=== PATIENT | female | born 1970 | race Asian ===

== ENCOUNTER 2017-10-16 02:10 | Inpatient (IN) | payer BC ==
[~2017-10-16] VITALS: Ht 162.6 cm; Wt 74.8 kg
[2017-10-16] VITALS (7 sets, daily range): BP systolic 92–110; BP diastolic 41–70; PULSE 85–101; TEMP 36.3–38.2; O2SAT 95–99; Ht 162.6 cm; Wt 74.8 kg
[2017-10-16] MEDS ORDERED: SODIUM CHLORIDE 0.9% 1000ML 1,000 ML IV STA ×3 (02:37→05:21)
[2017-10-16] MEDS ORDERED: ACETAMINOPHEN 500 MG TAB PO STA (02:37)
--- NOTE | 2017-10-16 02:40 | EMERGENCY ROOM VISIT NOTE ---
History Report prepared by Mark: Nestor Estevez Under the Supervision of: Dr. Juana Steven D.O. First contact with patient: 02:24 Chief Complaint: FEVER Stated Complaint: FEVER,SWEATING,CAN'T BREATHE,SHAKING,FAST HB History of Present Illness The patient is a 47 year old female who presents to the Emergency Room with complaints of a constant fever beginning tonight. The patient states that her recently had a stroke, and she notes that she has been very tired because she has been taking care of him. She reports that she went to bed tonight because she thought she was developing a cold. The patient states that she became very cold after taking her medication. She notes that she also started shaking, and had left flank pain, a cough, an itchy throat, dizziness, and was diaphoretic and tachycardic. She reports that she becomes dizzy when she gets up. The patient states that she became diaphoretic after taking an Advil and covering herself with blankets. She notes that her daughter took her heart rate and told her that it was very fast, prompting her visit to the emergency department tonight. She denies any urinary symptoms, nausea, vomiting , diarrhea, leg swelling, and rash. She reports that she has never had similar symptoms and did not receive a flu shot this year. The patient states that she has a history of hypertension and diabetes and forgot to take her metformin tonight. Source of History: patient Onset: tonight Position: other (global) Quality: other (fever) Timing: constant Associated Symptoms: + chills, + diaphoresis, + cough, No nausea, No vomiting, No diarrhea, No urinary symptoms, No rash Note: The patient also complains of shaking, left flank pain, an itchy throat, dizziness, and tachycardia. She denies any leg swelling. Review of Systems See HPI for pertinent positives & negatives. A total of 10 systems reviewed and were otherwise negative. Past Medical & Surgical Medical Problems: (1) Diabetes (2) Hypertension Family History No pertinent family history stated. Social History Smoking Status: Never Smoker Marital Status: Housing Status: lives with family Occupation Status: unemployed Current/Historical Medications Scheduled Lisinopril (Zestril), 10 MG PO DAILY Metformin Hcl (Glucophage), 500 MG PO DAILY Allergies Coded Allergies: No Known Allergies (Unverified , 10/16/17) Physical Exam Vital Signs Date Time Temp Pulse Resp B/P (MAP) Pulse Ox O2 Delivery O2 Flow Rate FiO2 10/16/17 05:22 95 20 95/63 98 10/16/17 04:54 99 16 100/59 100 Room Air 10/16/17 03:31 38.3 101 16 86/65 97 Room Air 10/16/17 02:57 109 20 99/62 100 Room Air 10/16/17 02:53 Room Air 10/16/17 02:19 39.0 130 20 104/72 97 Room Air Physical Exam HEENT: Head - normocephalic and atraumatic Pupils are equal, round, and reactive to light. Extraocular eye muscles are intact, and sclera are anicteric. Nose - moist nasal mucosa without discharge. Mouth - moist buccal mucosa. Oropharynx is nonerythematous and there is no tonsillar exudate or edema noted. Neck: Supple; no JVD, nuchal rigidity, cervical lymphadenopathy. Heart: Regular rhythm and tachycardic. There is a normal S1 and S2 with no murmurs, clicks, or gallops appreciated. Lungs: Clear to auscultation bilaterally with no wheezes, rales, or rhonchi. Abdomen: Soft, completely nontender, nondistended, with good bowel sounds. There are no palpable pulsatile masses or hepatosplenomegaly. There is no guarding, rigidity, or rebound noted. Back: Mild left CVA tenderness. Extremities: No evidence of cyanosis, clubbing, or edema. There are easily palpable peripheral pulses. Scabbed over lesion on the top of the right foot. Skin: hot and dry with good turgor and no rashes, diaphoretic. Neuro: Muscle strength was 5/5 in all four extremities, no other focal findings. Medical Decision & Procedures ER Provider Diagnostic Interpretation: Radiology results as stated below per my review and interpretation: CHEST 1 VIEW PORTABLE X-RAY: No pulmonary infiltrates or evidence of pneumonia. Laboratory Results 10/16/17 02:50 Red Blood Count 4.07, Mean Corpuscular Volume 83.8, Mean Corpuscular Hemoglobin 27.8, Mean Corpuscular Hemoglobin Concent 33.1, Mean Platelet Volume 10.1, Neutrophils (%) (Auto) 94.6, Lymphocytes (%) (Auto) 2.1, Monocytes (%) (Auto) 2.6, Eosinophils (%) (Auto) 0.2, Basophils (%) (Auto) 0.1, Neutrophils # (Auto) 15.47, Lymphocytes # (Auto) 0.35, Monocytes # (Auto) 0.43, Eosinophils # (Auto) 0.04, Basophils # (Auto) 0.02 10/16/17 02:50 Test 10/16/17 02:35 10/16/17 02:50 10/16/17 02:52 10/16/17 03:50 Influenza Type A Antigen Neg for Influ A (NEG) Influenza Type B Antigen Neg for Influ B (NEG) White Blood Count 16.38 K/uL (4.8-10.8) Red Blood Count 4.07 M/uL (4.2-5.4) Hemoglobin 11.3 g/dL (12.0-16.0) Hematocrit 34.1 % (37-47) Mean Corpuscular Volume 83.8 fL (80-100) Mean Corpuscular Hemoglobin 27.8 pg (25-34) Mean Corpuscular Hemoglobin Concent 33.1 g/dl (32-36) Platelet Count 306 K/uL (130-400) Mean Platelet Volume 10.1 fL (7.4-10.4) Neutrophils (%) (Auto) 94.6 % Lymphocytes (%) (Auto) 2.1 % Monocytes (%) (Auto) 2.6 % Eosinophils (%) (Auto) 0.2 % Basophils (%) (Auto) 0.1 % Neutrophils # (Auto) 15.47 K/uL (1.4-6.5) Lymphocytes # (Auto) 0.35 K/uL (1.2-3.4) Monocytes # (Auto) 0.43 K/uL (0.11-0.59) Eosinophils # (Auto) 0.04 K/uL (0-0.5) Basophils # (Auto) 0.02 K/uL (0-0.2) RDW Standard Deviation 44.4 fL (36.4-46.3) RDW Coefficient of Variation 14.4 % (11.5-14.5) Immature Granulocyte % (Auto) 0.4 % Immature Granulocyte # (Auto) 0.07 K/uL (0.00-0.02) Prothrombin Time 10.7 SECONDS (9.0-12.0) Prothromb Time International Ratio 1.0 (0.9-1.1) Activated Partial Thromboplast Time 28.0 SECONDS (21.0-31.0) Partial Thromboplastin Ratio 1.1 Anion Gap 7.0 mmol/L (3-11) Est Creatinine Clear Calc Drug Dose 54.2 ml/min Estimated GFR () 60.2 Estimated GFR (Non- 51.9 BUN/Creatinine Ratio 10.7 (10-20) Calcium Level 8.9 mg/dl (8.5-10.1) Total Bilirubin 1.0 mg/dl (0.2-1) Aspartate Amino Transf (AST/SGOT) 185 U/L (15-37) Alanine Aminotransferase (ALT/SGPT) 130 U/L (12-78) Alkaline Phosphatase 172 U/L (45-117) Total Protein 8.0 gm/dl (6.4-8.2) Albumin 3.2 gm/dl (3.4-5.0) Globulin 4.8 gm/dl (2.5-4.0) Albumin/Globulin Ratio 0.7 (0.9-2) Bedside Lactic Acid Venous 1.19 mmol/L (0.90-1.70) Urine Color DK YELLOW Urine Appearance TURBID (CLEAR) Urine pH 5.0 (4.5-7.5) Urine Specific [place] 1.026 (1.000-1.030) Urine Protein 1+ (NEG) Urine Glucose (UA) NEG (NEG) Urine Ketones TRACE (NEG) Urine Occult Blood 1+ (NEG) Urine Nitrite NEG (NEG) Urine Bilirubin 1+ (NEG) Urine Urobilinogen NEG (NEG) Urine Leukocyte Esterase MODERATE (NEG) Urine WBC (Auto) >30 /hpf (0-5) Urine RBC (Auto) 0-4 /hpf (0-4) Urine Hyaline Casts (Auto) 1-5 /lpf (0-5) Urine Epithelial Cells (Auto) >30 /lpf (0-5) Urine Bacteria (Auto) 1+ (NEG) Urine Pathogenic Casts /lpf (0) Urine Yeast (Auto) PRESENT (NONE PRSENT) Laboratory results per my review. Medications Administered Medications (Trade) Dose Ordered Sig/Patricia Route Start Time Stop Time Status Last Admin Dose Admin Sodium Chloride 1,000 ml @ 999 mls/hr Q1H1M STAT IV 10/16/17 02:37 10/16/17 03:37 DC 10/16/17 02:56 999 MLS/HR Acetaminophen (Tylenol Tab) 1,000 mg NOW STAT PO 10/16/17 02:37 10/16/17 02:38 DC 10/16/17 02:40 1,000 MG Sodium Chloride 1,000 ml @ 999 mls/hr Q1H1M STAT IV 10/16/17 03:40 10/16/17 04:40 DC 10/16/17 03:54 999 MLS/HR Imipenem/ Cilastatin Sodium 500 mg/Dextrose 110 ml @ 100 mls/hr NOW STAT IV 10/16/17 03:41 10/16/17 04:46 DC 10/16/17 04:11 100 MLS/HR Daptomycin 500 mg/ Sodium Chloride 60 ml @ 100 mls/hr NOW STAT IV 10/16/17 03:41 10/16/17 04:16 DC 10/16/17 04:10 100 MLS/HR Sodium Chloride 1,000 ml @ 200 mls/hr Q5H STAT IV 10/16/17 05:21 10/16/17 10:20 10/16/17 06:19 200 MLS/HR Procedure Acetaminophen 1000mg PO, Sodium Chloride 1000 ml @ 999 mls/hr IV. Sodium Chloride 1000 ml @ 999 mls/hr IV. Daptomycin 500mg/Sodium Chloride 60ml @ 100mls/hr IV, Imipenem/Cilastatin Sodium 500 mg/Dextrose 110ml @ 100mls/hr IV ED Course 0228: The patient was evaluated in room A10. A complete history and physical examination were performed. Nursing notes and previous electronic medical records were reviewed. IV lock was established and labs were drawn as above. A septic protocol was performed. A urine specimen was obtained. The patient went for chest x-ray as described above. 0235: I reevaluated and updated the patient. She will receive fluids and Tylenol. 0237: Acetaminophen 1000mg PO, Sodium Chloride 1000 ml @ 999 mls/hr IV. 0334: I rechecked the patient. Her pressure is down to the 80s. I laid her flat. She is currently receiving fluids and has been unable to provide a urine specimen. 0340: Sodium Chloride 1000 ml @ 999 mls/hr IV. 0341: Daptomycin 500mg/Sodium Chloride 60ml @ 100mls/hr IV, Imipenem/Cilastatin Sodium 500 mg/Dextrose 110ml @ 100mls/hr IV 0410: The patient's blood pressure is now 100/59. She received a liter of fluid and was able to provide a urine specimen. 0449: Upon reevaluation, I discussed findings and results with the patient. She verbalized agreement of the treatment plan. I spoke with Dr. Resendiz of the [facility] Hospitalist Service. The patient will be evaluated for further management and care. Medical Decision The patient is a 47 year old female who presents to the Emergency Room with complaints of a constant fever beginning tonight. Differential diagnoses include : influenza, pyelonephritis, pneumonia, UTI, and sepsis. Lab Results Show: WBC 16.3. Hemoglobin 11.3. Platelet count 306. 94% neutrophils. Lactic acid 1.1. BUN 13. Creatinine 1.2. Glucose 178. Total bilirubin 1. AST 185. ALT 130. Alkaline phosphatase 172. Normal coags. Negative influenza. Urine shows: trace ketones, 1+ blood, moderate leukocyte esterase, greater than 30 WBC, and 1+ bacteria. This is a 47-year-old female patient presents to the emergency department with fever and shaking chills. The patient admits that she is been under significant stress because she is caring for her who was recently diagnosed with a stroke. She presents with a slight cough and high fever with shaking chills. She also complains of left flank pain. Urinalysis was positive and I believe she is suffering from acute pyelonephritis and sepsis. The patient is considered to have been in septic shock because of her low blood pressure. She was treated with IV crystalloid therapy and antibiotics. I discussed the case with the [facility] Hospitalist and they will evaluate for further management. Medication Reconcilliation Current Medication List: was personally reviewed by ut Blood Pressure Screening Patient's blood pressure: Low blood pressure Low blood pressure related to septic shock. Consults Time Called: [phone] Consulting Physician: Dr. Resendiz - Hospitalist, [facility] Returned Call: [phone] Discussed the patient's case. The patient will be evaluated for further management. Impression Primary Impression: Septic shock Additional Impression: Pyelonephritis Critical Care I have personally spent greater than 45 minutes of critical care time in the direct management of this patient. This includes bedside care, interpretation of diagnostic studies, and testing, discussion with consultants, patient, and family members, and other required patient management activities. This 45 minutes is in excess of all separately billable procedures. Scribe Attestation The scribe's documentation has been prepared under my direction and personally reviewed by me in its entirety. I confirm that the note above accurately reflects all work, treatment, procedures, and medical decision making performed by me. Departure Information Dispostion Being Evaluated By Hospitalist Referrals No Doctor, Assigned (PCP) Patient Instructions [facility] Problem Qualifiers
[2017-10-16 03:05] LABS: INFLUENZA B ANTIGEN Neg for Influ B (NEG)
[2017-10-16 03:10] LABS: BASO % 0.1 %; BASO ABS # 0.02 K/uL (0-0.2); EOS % 0.2 %; EOS ABS # 0.04 K/uL (0-0.5); HEMATOCRIT 34.1 % (37-47); HEMOGLOBIN 11.3 g/dL (12.0-16.0); IG# 0.07 K/uL (0.00-0.02); LYMPH % 2.1 %; LYMPH ABS # 0.35 K/uL (1.2-3.4); MEAN CELL VOLUME 83.8 fL (80-100); MEAN CORPUSCULAR HEMOGLOBIN 27.8 pg (25-34); MEAN CORPUSCULAR HGB CONC 33.1 g/dl (32-36); MEAN PLATELET VOLUME 10.1 fL (7.4-10.4); MONO % 2.6 %; MONO ABS # 0.43 K/uL (0.11-0.59); NEUT % 94.6 %; NEUT ABS # 15.47 K/uL (1.4-6.5); PLATELET COUNT 306 K/uL (130-400); RED CELL DISTRIBUTION WIDTH CV 14.4 % (11.5-14.5); RED CELL DISTRIBUTION WIDTH SD 44.4 fL (36.4-46.3); WHITE BLOOD COUNT 16.38 K/uL (4.8-10.8)
[2017-10-16 03:28] LABS: ALBUMIN 3.2 gm/dl (3.4-5.0); CALCIUM 8.9 mg/dl (8.5-10.1); CREATININE 1.25 mg/dl (0.60-1.20); POTASSIUM 3.8 mmol/L (3.5-5.1)
[2017-10-16] MEDS ORDERED: IMIPENEM/CILASTATIN IV 500 MG in DEXTROSE 5% 100ML 100 ML IV STA (03:41)
[2017-10-16] MEDS ORDERED: DAPTOmycin IV 500 MG in SODIUM CHLORIDE 0.9% 50ML 50 ML IV STA (03:41)
[2017-10-16] MEDS ORDERED: GLC/500 PO (05:13)
[2017-10-16] MEDS ORDERED: LISI-461 PO (05:14)
[2017-10-16] MEDS ORDERED: DEXTROSE 50% 50 ML SYR IV PRN (05:45)
[2017-10-16] MEDS ORDERED: VANCOMYCIN CONSULT ACTIVE PRN (05:45)
[2017-10-16] MEDS ORDERED: ENOXAPARIN 40 MG/0.4 ML SYR SC SCH (05:45)
[2017-10-16] MEDS ORDERED: ONDANSETRON 8MG OD TAB PO PRN (05:45)
[2017-10-16] MEDS ORDERED: ZOLPIDEM TARTRATE 5 MG TAB PO PRN (05:45)
[2017-10-16] MEDS ORDERED: PIPERACILL/TAZOBAC CONSULT ACTIVE PRN (05:45)
[2017-10-16] MEDS ORDERED: GLUCOSE 10 TABS/TUBE PO PRN (05:45)
[2017-10-16] MEDS ORDERED: GLUCOSE 40% GEL 15 GM TUBE PO PRN (05:45)
[2017-10-16] MEDS ORDERED: GLUCAGON FOR INJ 1 MG VIAL SQ PRN (05:45)
[2017-10-16] MEDS ORDERED: CARBOHYDRATES FOR HYPOGLYCEMIA PO PRN (05:45)
[2017-10-16] MEDS ORDERED: PIPERACILL/TAZOBAC IV 3.375 GM in DEXTROSE 5% 100ML 100 ML IV SCH (06:00)
--- NOTE | 2017-10-16 06:10 | History and Physical ---
History & Physical Date & Time of Service: October 16, 2017 at 05:50 Chief Complaint: Fever,Sweating,Can't Breathe,Shaking,Fast Hb Primary Care Physician: No Doctor, Assigned History of Present Illness The patient is a 47-year-old female who presents to the emergency department due to acute onset of an elevated temperature, fatigue, chills, sweats, dizziness, sore throat, left flank pain, cough and increased heart rate, several hours prior to arrival. She has been taking care of her , who was recently in the hospital with a stroke. She reports never having had these type of symptoms before, and she did not get a flu shot this year. Past Medical/Surgical History Medical Problems: (1) Diabetes (2) Hypertension Family History Noncontributory Social History Smoking Status: Never Smoker Smokeless Tobacco Use: No Alcohol Use: none Drug Use: none Marital Status: Housing status: lives with family Occupational Status: unemployed Immunizations History of Influenza Vaccine: No History of Tetanus Vaccine?: Unknown History of Pneumococcal: No History of Hepatitis B Vaccine: Unknown Allergies Coded Allergies: No Known Allergies (Unverified , 10/16/17) Home Medications Scheduled Lisinopril (Zestril), 10 MG PO DAILY Metformin Hcl (Glucophage), 500 MG PO DAILY Review of Systems The patient denies chest pain, lower extremity swelling, nausea, vomiting, diarrhea , constipation, pelvic pain, blood in urine or stool, dysuria, urinary frequency or urgency, memory loss, loss of consciousness, rash, abnormal bruising or bleeding, imbalance, focal or generalized weakness, numbness or tingling in arms or legs, generalized arthralgias or myalgias, or neck pain. The review of systems is otherwise negative other than for that already noted above, and at least 10 systems have been reviewed. Physical Exam Vital Signs Date Time Temp Pulse Resp B/P (MAP) Pulse Ox O2 Delivery O2 Flow Rate FiO2 10/16/17 05:22 95 20 95/63 98 10/16/17 04:54 99 16 100/59 100 Room Air 10/16/17 03:31 38.3 101 16 86/65 97 Room Air 10/16/17 02:57 109 20 99/62 100 Room Air 10/16/17 02:53 Room Air 10/16/17 02:19 39.0 130 20 104/72 97 Room Air The patient is awake, alert and oriented 3, feels warm to touch, normocephalic and atraumatic, lying in bed and in no acute distress. HEENT--PERRL, EOMI, mucous membranes and oropharynx dry. Neck--supple. No JVD. No bruits. Thyroid normal, trachea midline, no adenopathy. Heart--normal S1 and S2. No murmurs, rubs or gallops. Lungs--clear bilaterally, no respiratory distress, no accessory muscle use. Abdomen--normal bowel sounds and soft. Tender left side of abdomen and flank. Nondistended, no hernias or masses. Extremities--no cyanosis or clubbing. No edema. There are good distal pulses b/ l. Dermatologic--normal skin turgor, normal color, no abnormal lymph nodes, no rash. Neurologic--cranial nerves II through XII grossly intact. Rheumatologic--normal range of motion. Psychiatric--normal affect. Diagnostics Laboratory Results Results Past 24 Hours Test 10/16/17 02:35 10/16/17 02:50 10/16/17 02:52 10/16/17 03:50 Range/Units Influenza Type A Antigen Neg for Influ A NEG Influenza Type B Antigen Neg for Influ B NEG White Blood Count 16.38 4.8-10.8 K/uL Red Blood Count 4.07 4.2-5.4 M/uL Hemoglobin 11.3 12.0-16.0 g/dL Hematocrit 34.1 37-47 % Mean Corpuscular Volume 83.8 80-100 fL Mean Corpuscular Hemoglobin 27.8 25-34 pg Mean Corpuscular Hemoglobin Concent 33.1 32-36 g/dl Platelet Count 306 130-400 K/uL Mean Platelet Volume 10.1 7.4-10.4 fL Neutrophils (%) (Auto) 94.6 % Lymphocytes (%) (Auto) 2.1 % Monocytes (%) (Auto) 2.6 % Eosinophils (%) (Auto) 0.2 % Basophils (%) (Auto) 0.1 % Neutrophils # (Auto) 15.47 1.4-6.5 K/uL Lymphocytes # (Auto) 0.35 1.2-3.4 K/uL Monocytes # (Auto) 0.43 0.11-0.59 K/uL Eosinophils # (Auto) 0.04 0-0.5 K/uL Basophils # (Auto) 0.02 0-0.2 K/uL RDW Standard Deviation 44.4 36.4-46.3 fL RDW Coefficient of Variation 14.4 11.5-14.5 % Immature Granulocyte % (Auto) 0.4 % Immature Granulocyte # (Auto) 0.07 0.00-0.02 K/uL Prothrombin Time 10.7 9.0-12.0 SECONDS Prothromb Time International Ratio 1.0 0.9-1.1 Activated Partial Thromboplast Time 28.0 21.0-31.0 SECONDS Partial Thromboplastin Ratio 1.1 Sodium Level 132 136-145 mmol/L Potassium Level 3.8 3.5-5.1 mmol/L Chloride Level 101 98-107 mmol/L Carbon Dioxide Level 24 21-32 mmol/L Anion Gap 7.0 3-11 mmol/L Blood Urea Nitrogen 13 7-18 mg/dl Creatinine 1.25 0.60-1.20 mg/dl Est Creatinine Clear Calc Drug Dose 54.2 ml/min Estimated GFR () 60.2 Estimated GFR (Non- 51.9 BUN/Creatinine Ratio 10.7 10-20 Random Glucose 178 70-99 mg/dl Calcium Level 8.9 8.5-10.1 mg/dl Total Bilirubin 1.0 0.2-1 mg/dl Aspartate Amino Transf (AST/SGOT) 185 15-37 U/L Alanine Aminotransferase (ALT/SGPT) 130 12-78 U/L Alkaline Phosphatase 172 45-117 U/L Total Protein 8.0 6.4-8.2 gm/dl Albumin 3.2 3.4-5.0 gm/dl Globulin 4.8 2.5-4.0 gm/dl Albumin/Globulin Ratio 0.7 0.9-2 Bedside Lactic Acid Venous 1.19 0.90-1.70 mmol/L Urine Color DK YELLOW Urine Appearance TURBID CLEAR Urine pH 5.0 4.5-7.5 Urine Specific [place] 1.026 1.000-1.030 Urine Protein 1+ NEG Urine Glucose (UA) NEG NEG Urine Ketones TRACE NEG Urine Occult Blood 1+ NEG Urine Nitrite NEG NEG Urine Bilirubin 1+ NEG Urine Urobilinogen NEG NEG Urine Leukocyte Esterase MODERATE NEG Urine WBC (Auto) >30 0-5 /hpf Urine RBC (Auto) 0-4 0-4 /hpf Urine Hyaline Casts (Auto) 1-5 0-5 /lpf Urine Epithelial Cells (Auto) >30 0-5 /lpf Urine Bacteria (Auto) 1+ NEG Urine Pathogenic Casts 0 /lpf Urine Yeast (Auto) PRESENT NONE PRSENT Microbiology Results 10/16/17 Blood Culture, Received Pending 10/16/17 Blood Culture, Received Pending 10/16/17 Urine Culture, Received Pending CXR normal Impression Assessment and Plan Septic shock //abnormal LFTs/ presumptive left pyelonephritis-- Admit to the telemetry unit for close blood pressure monitoring. She has received 2 L normal saline in the ED. Place on NSS + KCl 20 mEq at 150 mils per hour. She has received daptomycin IV and Primaxin IV in the emergency department. Place on vancomycin IV and Zosyn IV due to recent hospital association with her . Follow urine cultures and blood cultures and sensitivities. Order CT scan of abdomen and pelvis without contrast. Abnormal LFTs-- CT as above. Order acute hepatitis profile. Further management based on above CT. Acute kidney injury/hypertension-- Creatinine 1.25 upon admission. Hold lisinopril. IV fluids as above. Serial laboratories. Diabetes mellitus-- Hold metformin. Place on Accu-Cheks before meals and at bedtime with NovoLog coverage per scale. Check hemoglobin A1c. Advanced Directives Existing Advance Directive: No Existing Living Will: No Existing Power of Respooler: No Resuscitation Status VTE Prophylaxis Will order VTE Prophylaxis: Yes Social Service Consult None Apply
--- NOTE | 2017-10-16 06:56 | DIAGNOSTIC IMAGING REPORT ---
ABD/PELVIS NO IV OR ORAL CONT CT DOSE: 351.97 mGy.cm HISTORY: Flank pain sepsis, abnormal LFT's, UTI, flank tenderness TECHNIQUE: Multiaxial CT images of the abdomen and pelvis were performed without contrast. A dose lowering technique was utilized adhering to the principles of ALARA. COMPARISON STUDY: None. FINDINGS: Lung bases are clear. Liver spleen and pancreas appear unremarkable. Right kidney is negative for calcification or hydronephrosis. Left kidney shows multiple calcifications within the left renal pelvis and collecting system combined with a larger calcification at the left ureteropelvic junction. Large calcification at the UVJ measures 2.4 cm in greatest axis dimension. There is again moderate left renal hydronephrosis. Ureters appear unremarkable in overall course and caliber. The uterus bladder is midline. Appendix is normal. Bowel pattern is nonobstructive. Is anteflexed IMPRESSION: 1. Multiple calcifications within the left renal collecting system including the largest partially obstructing and or obstructing calculus at the left ureteral pelvic junction measuring 2.4 cm in maximum dimension. 2. Moderate left hydronephrosis. 3. Remainder of the study is unremarkable. The above report was generated using voice recognition software. It may contain grammatical, syntax or spelling errors. Electronically signed by: Tera Lucas M.D. 10/16/2017 6:54 AM Dictated Date/Time: 10/16/2017 6:51 AM
[2017-10-16] MEDS: INSULIN ASPART 100 UNITS/ML 3 ML PEN SC SCH ×4 (07:00→21:00)
--- NOTE | 2017-10-16 07:10 | DIAGNOSTIC IMAGING REPORT ---
SINGLE VIEW CHEST CLINICAL HISTORY: Sepsis. FINDINGS: An AP, portable, upright chest radiograph is obtained. No prior studies are available for comparison at the time of dictation. The examination is degraded by portable technique and patient rotation. The cardiomediastinal silhouette is unremarkable. The lungs and pleural spaces are clear. No pneumothorax is seen. The bony thorax is grossly intact. IMPRESSION: No active disease in the chest. Electronically signed by: Bridger Bauer M.D. 10/16/2017 7:09 AM Dictated Date/Time: 10/16/2017 7:09 AM
[2017-10-16] MEDS: NSS + 20MEQ KCL 1000ML 1,000 ML IV SCH ×3 (09:49→20:04)
[2017-10-16] MEDS ORDERED: PIPERACILL/TAZOBAC IV 3.375 GM in NSS 100 ML IV ONE (10:00)
[2017-10-16] MEDS ORDERED: FENTANYL CITRATE INJ 50 MCG/1 ML 2 ML VIAL ONE (10:25)
[2017-10-16] MEDS ORDERED: MIDAZOLAM HCL 1 MG/ML 2ML VIAL ONE (10:25)
[2017-10-16] MEDS ORDERED: PROPOFOL IV EMULSION 10 MG/ML 20 ML VIAL ONE (10:25)
[2017-10-16] MEDS ORDERED: LIDOCAINE HCL 2% 2 ML VIAL (20MG/ML) ONE (10:25)
--- NOTE | 2017-10-16 10:26 | Urology Consultation ---
History General Date of Service: October 16, 2017. Primary Care Physician: No Doctor, Assigned History of Present Illness 47-year-old female admitted with an obstructing 22 mm left ureteropelvic junction stone with fever. She was in her usual state of health until she developed some left flank pain yesterday this was associated with some fever and chills. She came to the ER CT scan was done showing multiple stones in the left kidney and a 22 mm stone obstructing the left ureteropelvic junction. Her blood and urine cultures are pending she is not having significant pain now but with the fever the potential for her to become septic exists. She has not had stones before Laboratory Labs were reviewed and are within normal limits unless listed below. Labs are available in the chart and at [facility] Problem List Medical Problems: (1) Pyelonephritis Status: Acute (2) Septic shock Status: Acute Social History Hx Tobacco Use In Past Year?: No Marital status: Housing status: lives with family Occupation status: unemployed Immunizations History of Influenza Vaccine: No History of Tetanus Vaccine?: Unknown History of Pneumococcal: No History of Hepatitis B Vaccine: Unknown Allergies Coded Allergies: No Known Allergies (Unverified , 10/16/17) Medications Home Medications: Home Meds and Scripts Medications Dose Route/Sig Max Daily Dose Days Date Category Zestril (Lisinopril) 10 Mg Tab 10 Mg PO DAILY 10/16/17 Reported Glucophage (Metformin Hcl) 500 Mg Tab 500 Mg PO DAILY 10/16/17 Reported Inpatient Medications: Current Inpatient Medications Medications (Trade) Dose Ordered Sig/Patricia Route Start Time Stop Time Status Last Admin Dose Admin Potassium Chloride/Sodium Chloride 1,000 ml @ 150 mls/hr Q6H40M IV 10/16/17 06:44 11/15/17 06:43 10/16/17 09:49 150 MLS/HR Zolpidem Tartrate (Ambien Tab) 5 mg HSZ PRN PO 10/16/17 05:45 11/15/17 05:44 Ondansetron HCl (Zofran Odt) 8 mg Q6H PRN PO 10/16/17 05:45 11/15/17 05:44 Insulin Aspart (novoLOG ASPART) SLIDING SCALE If C... ACHS SC 10/16/17 07:00 11/15/17 06:59 Glucose (Glucose 40% Gel) 15-30 GRAMS 15 GRAMS... UD PRN PO 10/16/17 05:45 11/15/17 05:44 Glucose (Glucose Chew Tab) 4-8 Tablets 4 Tabl... UD PRN PO 10/16/17 05:45 11/15/17 05:44 Dextrose (Dextrose 50% 50ML Syringe) 25-50ML OF 50% DW IV FOR... UD PRN IV 10/16/17 05:45 11/15/17 05:44 Glucagon (Glucagon Inj) 1 mg UD PRN SQ 10/16/17 05:45 11/15/17 05:44 Carbohydrates (Carbohydrates For Hypoglycemia) 15-30 GRAMS 15 grams if BSG 54-69... UD PRN PO 10/16/17 05:45 11/15/17 05:44 Vancomycin HCl 1000 mg/Sodium Chloride 270 ml @ 125 mls/hr Q14H IV 10/17/17 02:00 10/18/17 10:29 Miscellaneous Information (Consult) 1 ea UD PRN N/A 10/16/17 05:45 11/15/17 05:44 Miscellaneous Information (Consult) 1 ea UD PRN N/A 10/16/17 05:45 11/15/17 05:44 Vancomycin HCl 1750 mg/Sodium Chloride 535 ml @ 200 mls/hr ONE ONCE IV 10/16/17 10:30 10/16/17 13:10 Piperacillin Sod/ Tazobactam Sod 3.375 gm/Sodium Chloride 115 ml @ 230 mls/hr NOW ONCE IV 10/16/17 10:00 10/16/17 10:29 Piperacillin Sod/ Tazobactam Sod 3.375 gm/Sodium Chloride 115 ml @ 28.75 mls/ hr Q8H IV 10/16/17 16:00 10/18/17 15:59 Review of Systems Review of Systems Additional Comments: View of systems reviewed from her admitting history and physical Physical Exam Vital Signs: Vital Signs Past 12 Hours Date Time Temp Pulse Resp B/P (MAP) Pulse Ox O2 Delivery O2 Flow Rate FiO2 10/16/17 08:00 Room Air 10/16/17 07:23 37.3 85 18 92/59 99 Room Air 10/16/17 06:27 37.2 87 19 87/53 99 10/16/17 05:22 95 20 95/63 98 10/16/17 04:54 99 16 100/59 100 Room Air 10/16/17 03:31 38.3 101 16 86/65 97 Room Air 10/16/17 02:57 109 20 99/62 100 Room Air 10/16/17 02:53 Room Air 10/16/17 02:19 39.0 130 20 104/72 97 Room Air Physical Exam: General Appearance: WD/WN, no apparent distress ENT: hearing grossly normal Neck: supple, no adenopathy Respiratory/Chest: lungs clear, normal breath sounds, no respiratory distress Cardiovascular: regular rate, rhythm Gastrointestinal: Abdomen: normal abdomen Assessment & Plan Assessment & Plan Assessment Obstructing left ureteropelvic junction stone with fever We will take the patient to the operating room for cystoscopy left stent. We also discussed percutaneous nephrostomy tube for which she might have to be transferred out of this facility Discussed the stenting procedure including the risks of bleeding infection and anesthetic risks injury to the urinary tract and failure to get the skin in which would require nephrostomy tube placement all of her questions were answered and she agrees to proceed
[2017-10-16] MEDS ORDERED: EpHEDrine SULFATE INJ 50 MG/ML AMP IV PRN (10:30)
[2017-10-16] MEDS ORDERED: FENTANYL CITRATE INJ 50 MCG/1 ML 2 ML VIAL IV PRN (10:30)
[2017-10-16] MEDS ORDERED: ONDANSETRON INJ 2 MG/ML 2 ML VIAL IV PRN (10:30)
[2017-10-16] MEDS ORDERED: ATROPINE SULFATE 0.1 MG/ML 5ML SYR IV PRN (10:30)
[2017-10-16] MEDS ORDERED: VANCOMYCIN IV 1,750 MG in SODIUM CHLORIDE 0.9% 500ML 500 ML IV ONE (10:30)
[2017-10-16 10:53] LABS: HEP C IGG 13 YRS+OLDER_RFLX NEG (NEG)
[2017-10-16] MEDS ORDERED: Cysto-Conray II 17.2% 250ML BOTTLE ONE (11:00)
--- NOTE | 2017-10-16 12:13 | [facility] Post Operative Brief Note ---
Immediate Operative Summary Operative Date October 16, 2017. Pre-Operative Diagnosis Obstructing left ureteropelvic junction stone with fever Post-Operative Diagnosis Obstructing left ureteropelvic junction stone with fever Procedure(s) Performed Cystoscopy, Retrograde, Left Ureteral Stent Insertion. Surgeon Nike Athlete Surgeon(s) none Estimated Blood Loss 0ml Findings Consistent with Post-Op Diagnosis Specimens none per surgeon Drains 6x26f left ureteral stent Anesthesia Type MAC Complication(s) none Disposition Accompanied Pt To Recover: yes Disposition: Recovery Room / PACU
--- NOTE | 2017-10-16 12:18 | DIAGNOSTIC IMAGING REPORT ---
RETROGRADE INCLUDES KUB CLINICAL HISTORY: LEFT STENT PLACEMENT COMPARISON STUDY: CT of the abdomen and pelvis October 16, 2017. Fluoroscopy time: 66 seconds. FINDINGS: 5 fluoroscopic images were submitted for interpretation during a left retrograde exam. These images demonstrate cannulation of the left ureter with redemonstration of left hydronephrosis and multiple filling defects within the left collecting system shown to be calculi on prior CT. The findings images demonstrate appropriate positioning of a left ureteral stent. IMPRESSION: Fluoroscopic images from left retrograde exam with ureteral stent insertion, as described above. Electronically signed by: Edy Javed M.D. 10/16/2017 12:17 PM Dictated Date/Time: 10/16/2017 12:15 PM
--- NOTE | 2017-10-16 12:22 | [facility] Operative Report ---
Operative Report Operative Date October 16, 2017. Pre-Operative Diagnosis Obstructing left ureteropelvic junction stone with fever Post-Operative Diagnosis Obstructing left ureteropelvic junction stone with fever Procedure(s) Performed Cystoscopy, Retrograde, Left Ureteral Stent Insertion. Surgeon Ramp Lead Surgeon(s) none Estimated Blood Loss 0ml Findings Cystoscopic exam showed a normal urethra. Bladder showed no mucosal abnormalities. There was a purulent discharge from the left ureteral orifice. There were large stones in the left kidney and a lot of pus drained from the kidney once the stent was placed Specimens none per surgeon Drains 6x26f left ureteral stent Anesthesia Type MAC Complication(s) none Disposition yes Recovery Room / PACU Indications 47-year-old woman admitted with urosepsis and obstructed left kidney being brought in for left stent placement Description of Procedure After the induction of an adequate level of intravenous sedation and appropriate timeout patient was placed in the dorsolithotomy position. Lower abdomen and genitalia were prepped with Hibiclens draped in a sterile fashion. Using a 22 [place] Islander scope routine cystoscopic exam was performed with the above- noted findings. Next a 0.038 guidewire was passed through the left ureteral orifice and a 5 [place] Islander open-ended catheter was passed over this. A lot of purulent drainage drained from the left kidney left retrograde pyelogram was performed which showed left hydroureteronephrosis. Then under fluoroscopic guidance the guidewire was advanced past this large stone into the renal pelvis. The open-ended catheter was removed and a 6 [place] Islander by 26 cm stent was passed over the guidewire under fluoroscopic guidance to position above the large obstructing stone in the renal pelvis confirmed by fluoroscopy. Guidewire was removed there was a good curl at the bladder level. Patient's bladder was then drained. Cystoscope and sheath were removed. All needle sponge instrument counts were correct at the end of the case. Patient tolerated the procedure well and was taken recovery room in stable condition. I attest to the content of the Intraoperative Record and any orders documented therein. Any exceptions are noted below.
[2017-10-16] MEDS ORDERED: PHENYLEPHRINE 100MCG/ML 5ML SYR ONE (12:25)
--- NOTE | 2017-10-16 13:09 | Anesthesiology Progress Note ---
Anesthesia Post Op Note Date & Time October 16, 2017 at 13:09 Vital Signs Pain Intensity: 0 Vital Signs Past 12 Hours Date Time Temp Pulse Resp B/P (MAP) Pulse Ox O2 Delivery O2 Flow Rate FiO2 10/16/17 13:05 36.9 99 16 87/62 97 Room Air 10/16/17 12:55 99 16 81/59 97 Room Air 10/16/17 12:45 96 16 89/62 97 Room Air 10/16/17 12:35 97 16 80/55 98 Room Air 10/16/17 12:25 99 16 83/59 100 Room Air 10/16/17 12:15 97 16 80/56 100 Room Air 10/16/17 12:09 36.4 103 16 76/49 96 Room Air 10/16/17 08:00 Room Air 10/16/17 07:23 37.3 85 18 92/59 99 Room Air 10/16/17 06:27 37.2 87 19 87/53 99 10/16/17 05:22 95 20 95/63 98 10/16/17 04:54 99 16 100/59 100 Room Air 10/16/17 03:31 38.3 101 16 86/65 97 Room Air 10/16/17 02:57 109 20 99/62 100 Room Air 10/16/17 02:53 Room Air 10/16/17 02:19 39.0 130 20 104/72 97 Room Air Notes Mental Status: alert / awake / arousable, participated in evaluation Pt Amnestic to Procedure: Yes Nausea / Vomiting: adequately controlled Pain: adequately controlled Airway Patency, RR, SpO2: stable & adequate BP & HR: stable & adequate Hydration State: stable & adequate Anesthetic Complications: no major complications apparent
[2017-10-16 13:55] LABS: BASO % 0.1 %; BASO ABS # 0.01 K/uL (0-0.2); HEMATOCRIT 30.1 % (37-47); IG# 0.05 K/uL (0.00-0.02); LYMPH % 2.3 %; LYMPH ABS # 0.32 K/uL (1.2-3.4); MEAN CELL VOLUME 83.8 fL (80-100); MEAN CORPUSCULAR HEMOGLOBIN 27.9 pg (25-34); MEAN CORPUSCULAR HGB CONC 33.2 g/dl (32-36); MEAN PLATELET VOLUME 10.6 fL (7.4-10.4); MONO % 2.3 %; MONO ABS # 0.32 K/uL (0.11-0.59); NEUT % 94.9 %; NEUT ABS # 13.15 K/uL (1.4-6.5); PLATELET COUNT 234 K/uL (130-400); RED CELL DISTRIBUTION WIDTH CV 14.6 % (11.5-14.5); RED CELL DISTRIBUTION WIDTH SD 45.2 fL (36.4-46.3); WHITE BLOOD COUNT 13.85 K/uL (4.8-10.8)
[2017-10-16 14:25] LABS: CALCIUM 7.7 mg/dl (8.5-10.1); POTASSIUM 3.6 mmol/L (3.5-5.1)
--- NOTE | 2017-10-16 14:56 | Pharmacy Progress Note ---
Pharmacy Abx Initial Consult Date of Service October 16, 2017. Pharmacy Dosing Scope Date of Consult: 10/16/17 Consultation requested by: Dr. Resendiz Pharmacy is consulted to initiate Vancomycin and Zosyn IV dosing therapy, order appropriate labs and adjust drug dose/frequency. Subjective The patient is a 47 year old female admitted on October 16, 2017 at 06:02 admitted for left flank pain with fever and chills Objective Height (Feet): 5 Height (Inches): 4.00 Weight (Kilograms): 69.900 (BMI 26.4) Vital Signs (Past 12Hrs) Vital Signs Past 12 Hours Date Time Temp Pulse Resp B/P (MAP) Pulse Ox O2 Delivery O2 Flow Rate FiO2 10/16/17 14:00 36.8 98 18 101/65 (77) 98 10/16/17 13:39 Room Air 10/16/17 13:30 36.8 101 18 93/58 (70) 98 10/16/17 13:05 36.9 99 16 87/62 97 Room Air 10/16/17 12:55 99 16 81/59 97 Room Air 10/16/17 12:45 96 16 89/62 97 Room Air 10/16/17 12:35 97 16 80/55 98 Room Air 10/16/17 12:25 99 16 83/59 100 Room Air 10/16/17 12:15 97 16 80/56 100 Room Air 10/16/17 12:09 36.4 103 16 76/49 96 Room Air 10/16/17 08:00 Room Air 10/16/17 07:23 37.3 85 18 92/59 99 Room Air 10/16/17 06:27 37.2 87 19 87/53 99 10/16/17 05:22 95 20 95/63 98 10/16/17 04:54 99 16 100/59 100 Room Air 10/16/17 03:31 38.3 101 16 86/65 97 Room Air 10/16/17 02:57 109 20 99/62 100 Room Air 10/16/17 02:53 Room Air Lab Results (24Hrs) Laboratory Tests (24 Hours) Test 10/16/17 13:43 Lactic Acid Level 1.5 mmol/L (0.4-2.0) White Blood Count 13.85 K/uL (4.8-10.8) H Red Blood Count 3.59 M/uL (4.2-5.4) L Hemoglobin 10.0 g/dL (12.0-16.0) L Hematocrit 30.1 % (37-47) L Mean Corpuscular Volume 83.8 fL (80-100) Mean Corpuscular Hemoglobin 27.9 pg (25-34) Mean Corpuscular Hemoglobin Concent 33.2 g/dl (32-36) Platelet Count 234 K/uL (130-400) Mean Platelet Volume 10.6 fL (7.4-10.4) H Neutrophils (%) (Auto) 94.9 % Lymphocytes (%) (Auto) 2.3 % Monocytes (%) (Auto) 2.3 % Eosinophils (%) (Auto) 0.0 % Basophils (%) (Auto) 0.1 % Neutrophils # (Auto) 13.15 K/uL (1.4-6.5) H Lymphocytes # (Auto) 0.32 K/uL (1.2-3.4) L Monocytes # (Auto) 0.32 K/uL (0.11-0.59) Eosinophils # (Auto) 0.00 K/uL (0-0.5) Basophils # (Auto) 0.01 K/uL (0-0.2) Micro Results Date/Time Source Procedure Growth Status 10/16/17 03:01 Blood Blood Culture Pending Received 10/16/17 02:50 Blood Blood Culture Pending Received 10/16/17 02:30 Urine , Clean Catch Urine Culture Pending Received Assessment & Plan Assessment 47 year old female admitted for L flank pain with fever and chills. CT shows multiple stones in left kidney with 22mm stone @ ureteropelvic junction. Plan Vancomycin IV * Est. PK parameters: Vd 0.7L/kg; Javy~ 0.049 hr-1, T1/2~14 hr, CrCl 54 * Loading dose: 1750 mg (25 mg/kg) * Maintenance dose: 1000 mg IV (~15 mg/kg) every 14 hours * Goal trough level for indication : 15 to 20 mcg/mL * Due to initial empiric indication, no trough levels were ordered. If Vancomycin to continue please follow and order trough to assess current regimen Piperacillin/tazobactam * 3.375 g bolus administered over 30 minutes, then 3.375 g IV extended infusion every 8 hours for CrCl greater than 20 mL/min OR every 12 hours for CrCl 20 mL/ min or less and dialysis. Pharmacy will continue to follow and will adjust dose/frequency as necessary. Thank you.
[2017-10-16] MEDS: PIPERACILL/TAZOBAC IV 3.375 GM in NSS 100ML IV SCH (16:36)
--- NOTE | 2017-10-16 21:52 | Progress Note ---
Progress Note Date of Service October 16, 2017. Progress Note Attending follow up note: patient admitted early this morning. Patient was seen this AM prior to cystoscopy, she was experiencing some tachycardia and low blood pressures, no no symptoms. She was resting comfortably, minimal left flank pain despite having a 2cm ureteral stone reported that she had 3 weeks of mild left flank and left back pain, no fever/ chills, no dysuria She had cystoscopy with left ureteral stent placed by Dr. Gutierrez today, no complications per report, there was a lot of purulent drainage from left ureter after stent placed repeated labs in the afternoon, WBC coming down to 13k, Cr normal at 1.0, lactic acid normal at 1.5 revisited again, she was feeling well, BP better, in 90-100's systolic, she was tolerating diet, still with minimal pain - Severe sepsis due to left ureteral stone, UTI, possible pyelonephritis no growth on urine or blood cultures yet continue Vancomycin and Zosyn until cultures returne no signs of shock, lactic acid normal, mentating clearly, adequate UO and BP responds to fluid s/p left ureteral stent, will need definitive treatment for stone eventually will need 14 days of antibiotics determined by cultures - Acute kidney injury: due to sepsis and dehydration resolved, Cr down to 1.0, making adequate urine hold Lisinopril - Hypotension: due to sepsis, responded well to fluids, hold Lisinopril - DM type II: hold Metformin, treat with Novolog - Mild elevated in LFT: likely due to hypotension and sepsis repeat tomorrow keep on tele, repeat labs in the AM, follow up on cultures
[2017-10-17] VITALS (7 sets, daily range): BP systolic 98–148; BP diastolic 63–86; PULSE 76–90; TEMP 36.8–37.6; O2SAT 99–100
[2017-10-17] MEDS ORDERED: ACETAMINOPHEN 325 MG TAB PO PRN
[2017-10-17] MEDS: PIPERACILL/TAZOBAC IV 3.375 GM in NSS 100ML IV SCH ×4 (00:34→23:27)
[2017-10-17] MEDS: NSS + 20MEQ KCL 1000ML 1,000 ML IV SCH ×4 (00:40→23:28)
[2017-10-17] MEDS ORDERED: VANCOMYCIN IV 1,000 MG in SODIUM CHLORIDE 0.9% 250ML 250 ML IV SCH (02:00)
[2017-10-17 06:23] LABS: HEPATITIS A IGM TC 51813E NON-REACTIVE (NON-REACTIVE); HEPATITIS B CORE IGM TC51854R NON-REACTIVE (NON-REACTIVE)
[2017-10-17 07:19] LABS: BASO % 0.4 %; BASO ABS # 0.03 K/uL (0-0.2); EOS % 1.1 %; EOS ABS # 0.08 K/uL (0-0.5); HEMATOCRIT 27.8 % (37-47); IG# 0.01 K/uL (0.00-0.02); LYMPH % 13.3 %; LYMPH ABS # 0.99 K/uL (1.2-3.4); MEAN CELL VOLUME 84.2 fL (80-100); MEAN CORPUSCULAR HEMOGLOBIN 27.3 pg (25-34); MEAN CORPUSCULAR HGB CONC 32.4 g/dl (32-36); MONO ABS # 0.52 K/uL (0.11-0.59); NEUT % 78.1 %; NEUT ABS # 5.83 K/uL (1.4-6.5); PLATELET COUNT 216 K/uL (130-400); RED CELL DISTRIBUTION WIDTH CV 14.8 % (11.5-14.5); WHITE BLOOD COUNT 7.46 K/uL (4.8-10.8)
[2017-10-17 07:53] LABS: ALBUMIN 2.1 gm/dl (3.4-5.0); CALCIUM 7.5 mg/dl (8.5-10.1); CREATININE 0.72 mg/dl (0.60-1.20); POTASSIUM 3.6 mmol/L (3.5-5.1)
[2017-10-17 08:01] LABS: TOTAL PROTEIN 5.8 gm/dl (6.4-8.2)
[2017-10-17] MEDS: INSULIN ASPART 100 UNITS/ML 3 ML PEN SC SCH ×4 (08:27→21:00)
--- NOTE | 2017-10-17 10:11 | Progress Note ---
Progress Note Date of Service October 17, 2017. Progress Note Postop day 1 from left ureteral stent placement Patient is afebrile vital signs are stable She is not having any pain or discomfort from the stent. She is voiding fine She does have a postobstructive diuresis Blood cultures positive for gram-negative bacilli White count down to normal creatinine normal Assessment #1 urosepsis with large obstructing left renal pelvic calculi Patient improving post stent placement Recommend continue antibiotic coverage broad-spectrum until sensitivities from the blood cultures are back Could then transition to oral antibiotics No further urologic intervention needed at this time
[2017-10-17] MEDS ORDERED: ENOXAPARIN 40 MG/0.4 ML SYR SQ ONE (10:24)
--- NOTE | 2017-10-17 11:02 | PROGRESS NOTE ---
DATE: 10/16/2017 HISTORY OF PRESENT ILLNESS: Mrs. Walker is a 47-year-old female with a history of type 2 diabetes mellitus, hypertension, and nephrolithiasis who presented acutely to [facility] ER on 10/16/2017 complaining of fevers, sweating, shortness of breath, shaking, and an elevated heart rate. She was found to have an obstructing left ureteral stone, and a pyelonephritis. Subsequently, her blood cultures grew out gram negative bacillus x2 (most likely E. coli). She was evaluated by Dr. Gutierrez in the ER and subsequently underwent placement of a left ureteral stent. With placement of the stent, she had maia purulent drainage consistent with her diagnosis. At the present time, she is feeling significantly better. Her white blood cell count has come down, and she had her last fever in the vessel scrapper helper hours today. She has been afebrile since 350 this morning. The patient offers no complaints. She denies any nausea, vomiting, headache, abdominal pain, back pain, flank pain, or shaking chills. MEDICATIONS: 1. Zosyn 3.375 g IV q. 8 hours. 2. Tylenol 650 mg p.o. q. 4 hours p.r.n. 3. NovoLog sliding scale insulin. 4. Normal saline with potassium chloride at 150 mL per hour. 5. Ambien 5 mg at bedtime p.r.n. for sleep. 6. Zofran ODT 8 mg q. 6 hours p.r.n. for nausea. ALLERGIES: NKDA. PHYSICAL EXAMINATION: VITAL SIGNS: Temperature 36.9 degrees Celsius, pulse 76 and regular, respiratory rate is 18 and unlabored, blood pressure is 98/63, SPO2 is 100% on room air. GENERAL: The patient is in no acute distress. HEENT: Head is atraumatic, normocephalic. EOMs intact. Sclerae are anicteric. Face is symmetric. No perioral cyanosis. Mucous membranes moist. NECK: Without thyromegaly, adenopathy or JVD. CHEST AND LUNGS: Clear to auscultation throughout all lung dia, no wheezes or rales. CARDIOVASCULAR: S1 and S2 are regular without obvious murmur, gallop or rub. ABDOMINAL EXAM: Bowel sounds present. Abdomen is soft. Mild tenderness to palpation in the left side of the abdomen. EXTREMITIES: No clubbing, cyanosis or edema. Palpable distal pulses in all extremities. Appears well perfused. NEUROLOGIC: The patient is awake, alert, and oriented. Pleasant and cooperative. Answers questions appropriately. Speech is clear. Normal movement bilateral upper and lower extremities. Gait pattern not assessed. DERMATOLOGIC EXAMINATION: Reveals no rashes, lesions, or ecchymosis. LABORATORIES: White blood cell count 7.46. Hemoglobin 9.0 g/dL, hematocrit 27.8%, platelet count is 216,000. Sodium is 140 mmol/L, potassium 3.6 mmol/L. BUN is 8 mg per deciliter, creatinine 0.72 mg/dL. Random glucose 116 mg/dL. Magnesium level normal at 1.8. Alkaline phosphatase 141. Total protein slightly low at 5.8 units per liter with an albumin level of 2.1. Urine culture showed more than 3 different types of organisms. Blood culture grew out gram negative bacilli x2. Identification of species and sensitivities is pending. This most likely represents E. coli. ASSESSMENT: 1. Nephrolithiasis with an obstructed left ureter, status post ureteral stent. 2. Pyelonephritis, complicated by sepsis. 3. Leukocytosis secondary to problem #2 - improved. 4. Type 2 diabetes mellitus. 5. Hypertension. 6. Diagnoses as mentioned above. PLAN: 1. Would recommend the patient remain in the telemetry unit for the time being as her blood pressure has been labile. She will continue receiving generous amounts of IV fluids until her blood pressure stabilizes. At that point, she may be transferred to the medical floor. 2. We will recommend continuing IV antibiotics for the time being. Repeat blood cultures. Once those are negative, we will recommend sending home on outpatient antibiotics. Begin Floranex. 3. Management of kidney stones as per Dr. Gutierrez. She will meet with him as an outpatient to discuss medication management strategy. 4. She was encouraged to remain well hydrated. 5. We will continue to closely follow. Attending Attestation - Pt seen/examined, chart reviewed, care plan d/w LOKESH Melo. I agree w/ the sanderson components of his documentation except - would d/c the IV vancomycin. Pt w/o complaints. asks when she might be discharged - her had a stroke recently and she is the primary caregiver for him. I discussed with her that it appears she has chronic hepatitis B infection - she stated she had never been diagnosed and that her LFTs in the office a month ago were normal. has been in the [place] for 20 years; originally from [place]. denies any abd pain. VSS tele stable gen - NAD neck - no JVD heart - RRR, s1, s2, no murmur lungs - CTA b/l abd - soft, no mass or HSM ext - no edema A/P: 1. gram negative septicemia 2nd to UTI in the setting of obstructing kidney stone - d/c vanco, cont zosyn, and repeat her blood cx's for test of cure; will need 14 days of Rx 2. suspected chronic HepB infection - send HepB surface Ab; [facility] GI referral after d/c for management; consider HepA vaccine 3. kidney stone s/p stent - management per urology 4. acute kidney injury 2nd to #1 - resolved 5. anemia - likely from blood draws, copious fluid, etc; repeat cbc in am Sal Oliva MD [facility]
[2017-10-17] MEDS ORDERED: LACTOBACILLUS ACIDOPHILUS (FLORANEX) TAB PO ONE (13:21)
[2017-10-17] MEDS: LACTOBACILLUS ACIDOPHILUS (FLORANEX) TAB PO SCH (17:09)
[2017-10-18 03:38] VITALS: BP 136/84; PULSE 94; TEMP 37.2; O2SAT 95
[2017-10-18] MEDS: NSS + 20MEQ KCL 1000ML 1,000 ML IV SCH ×2 (05:45→11:52)
[2017-10-18 06:08] LABS: BASO % 0.2 %; BASO ABS # 0.02 K/uL (0-0.2); EOS ABS # 0.28 K/uL (0-0.5); HEMATOCRIT 25.7 % (37-47); HEMOGLOBIN 8.5 g/dL (12.0-16.0); IG# 0.03 K/uL (0.00-0.02); LYMPH % 19.1 %; LYMPH ABS # 1.77 K/uL (1.2-3.4); MEAN CELL VOLUME 83.4 fL (80-100); MEAN CORPUSCULAR HEMOGLOBIN 27.6 pg (25-34); MEAN CORPUSCULAR HGB CONC 33.1 g/dl (32-36); MEAN PLATELET VOLUME 9.8 fL (7.4-10.4); MONO % 7.5 %; NEUT % 69.9 %; NEUT ABS # 6.49 K/uL (1.4-6.5); PLATELET COUNT 249 K/uL (130-400); RED CELL DISTRIBUTION WIDTH CV 14.9 % (11.5-14.5); WHITE BLOOD COUNT 9.29 K/uL (4.8-10.8)
[2017-10-18 06:40] LABS: ALBUMIN 2.2 gm/dl (3.4-5.0); CALCIUM 7.8 mg/dl (8.5-10.1); CREATININE 0.77 mg/dl (0.60-1.20); POTASSIUM 3.7 mmol/L (3.5-5.1)
[2017-10-18 07:08] VITALS: BP 135/87; PULSE 90; TEMP 36.8; O2SAT 98
[2017-10-18] MEDS: PIPERACILL/TAZOBAC IV 3.375 GM in NSS 100ML IV SCH (08:15)
[2017-10-18] MEDS: LACTOBACILLUS ACIDOPHILUS (FLORANEX) TAB PO SCH ×3 (08:16→17:31)
[2017-10-18] MEDS: ENOXAPARIN 40 MG/0.4 ML SYR SQ SCH (08:18)
[2017-10-18] MEDS: INSULIN ASPART 100 UNITS/ML 3 ML PEN SC SCH ×4 (08:23→20:38)
[2017-10-18 11:57] VITALS: BP 131/84; PULSE 80; TEMP 36.9; O2SAT 98
[2017-10-18 15:23] VITALS: BP 143/90; PULSE 72; TEMP 37; O2SAT 98
--- NOTE | 2017-10-18 15:29 | Progress Note ---
Subjective Date of Service: October 18, 2017. Subjective Pt evaluation today including: conversation w/ patient, physical exam, chart review, lab review, review of studies, conversation w/ healthcare network pricing consultant, review of inpatient medication list Generally doing okay, denies fever and chill, has been tolerating diet, Problem List Medical Problems: (1) Pyelonephritis Status: Acute (2) Septic shock Status: Acute Review of Systems Constitutional: + weakness, + fatigue, No fever, No chills, No sweats, No weight loss, No problem reported Eyes: No worsening of vision, No eye pain, No redness, No discharge, No diplopia ENT: No hearing loss, No unusual epistaxis, No nasal symptoms, No sore throat, No tinnitus, No dental problems, No trouble swallowing Respiratory: No cough, No sputum, No wheezing, No shortness of breath, No dyspnea on exertion, No dyspnea at rest, No hemoptysis Cardiac: No chest pain, No orthopnea, No PND, No edema, No claudication, No palpitations Abdomen: No pain, No nausea, No vomiting, No diarrhea, No constipation Musculoskeletal: No joint pain, No muscle pain, No swelling, No calf pain Female : No dysuria, No urinary frequency, No hematuria, No incontinence, No abnormal vaginal bleeding, No vaginal discharge Neurologic: No memory loss, No paralysis, No weakness, No numbness/tingling, No vertigo, No balance problems Psychiatric: No depression symptoms, No anhedonism, No anxiety, No insomnia, No substance abuse Heme: No abnormal bleeding/bruising, No clotting problems, No swollen lymph nodes, No night sweats Endo: No fatigue, No excessive thirst, No excessive urination Skin: No rash, No itch, No new/changing skin lesions, No color change, No bleeding Objective Vital Signs Date Time Temp Pulse Resp B/P (MAP) Pulse Ox O2 Delivery O2 Flow Rate FiO2 10/18/17 12:00 Room Air 10/18/17 11:57 36.9 80 18 131/84 (100) 98 Room Air 10/18/17 08:00 Room Air 10/18/17 07:08 36.8 90 18 135/87 (103) 98 Room Air 10/18/17 04:00 Room Air 10/18/17 03:38 37.2 94 18 136/84 (101) 95 Room Air 10/17/17 23:59 Room Air 10/17/17 23:38 37.1 88 18 148/86 (106) 99 Room Air 10/17/17 20:00 Room Air 10/17/17 19:25 36.9 90 19 124/80 (95) 99 Room Air 10/17/17 16:00 Room Air 10/17/17 15:26 36.8 87 19 104/69 (81) 99 Room Air Physical Exam General Appearance: WD/WN, no apparent distress Eyes: normal inspection, PERRL, EOMI, sclerae normal ENT: normal ENT inspection, hearing grossly normal, pharynx normal Neck: supple, no adenopathy, thyroid normal, no JVD, no carotid bruits, trachea midline Respiratory/Chest: chest non-tender, normal breath sounds, no respiratory distress, no accessory muscle use, + decreased breath sounds Cardiovascular: regular rate, rhythm, no edema, no gallop, no JVD, no murmur Abdomen: normal bowel sounds, non tender, soft, no organomegaly, no pulsatile mass Extremities: normal range of motion, non-tender, normal inspection, no pedal edema, no calf tenderness, normal capillary refill, pelvis stable Neurologic/Psychiatric: vp delivery II-XII nml as tested, no motor/sensory deficits, alert, normal mood/affect, oriented x 3 Skin: normal color, warm/dry, no rash Lymphatic: no adenopathy Laboratory Results Last 24 Hours Test 10/17/17 16:34 10/17/17 19:13 10/17/17 20:56 10/18/17 06:01 Bedside Glucose 127 mg/dl 115 mg/dl Hepatitis B Surface Antibody NEG White Blood Count 9.29 K/uL Red Blood Count 3.08 M/uL Hemoglobin 8.5 g/dL Hematocrit 25.7 % Mean Corpuscular Volume 83.4 fL Mean Corpuscular Hemoglobin 27.6 pg Mean Corpuscular Hemoglobin Concent 33.1 g/dl Platelet Count 249 K/uL Mean Platelet Volume 9.8 fL Neutrophils (%) (Auto) 69.9 % Lymphocytes (%) (Auto) 19.1 % Monocytes (%) (Auto) 7.5 % Eosinophils (%) (Auto) 3.0 % Basophils (%) (Auto) 0.2 % Neutrophils # (Auto) 6.49 K/uL Lymphocytes # (Auto) 1.77 K/uL Monocytes # (Auto) 0.70 K/uL Eosinophils # (Auto) 0.28 K/uL Basophils # (Auto) 0.02 K/uL RDW Standard Deviation 46.0 fL RDW Coefficient of Variation 14.9 % Immature Granulocyte % (Auto) 0.3 % Immature Granulocyte # (Auto) 0.03 K/uL Red Blood Cell Morphology Unremarkable Sodium Level 139 mmol/L Potassium Level 3.7 mmol/L Chloride Level 111 mmol/L Carbon Dioxide Level 22 mmol/L Anion Gap 6.0 mmol/L Blood Urea Nitrogen 8 mg/dl Creatinine 0.77 mg/dl Est Creatinine Clear Calc Drug Dose 91.4 ml/min Estimated GFR () 108.1 Estimated GFR (Non- 93.2 BUN/Creatinine Ratio 11.0 Random Glucose 106 mg/dl Calcium Level 7.8 mg/dl Magnesium Level 1.9 mg/dl Total Bilirubin 0.6 mg/dl Direct Bilirubin 0.2 mg/dl Aspartate Amino Transf (AST/SGOT) 22 U/L Alanine Aminotransferase (ALT/SGPT) 50 U/L Alkaline Phosphatase 162 U/L Total Protein 6.0 gm/dl Albumin 2.2 gm/dl Test 10/18/17 07:24 10/18/17 11:14 Bedside Glucose 98 mg/dl 115 mg/dl Assessment and Plan 47-year-old white female admitted on October 16, 2017 because of sepsis ureter obstruction and he needs to Nephrolithiasis with an obstructed left ureter, status post ureteral stent on October 16, 2017 E. coli bacteremia and sepsis and pyelonephritiss/UTI Leukocytosis secondary to problem sepsis and pyelonephritis Type 2 diabetes mellitus. Hypertension. 2 out of 2 blood culture positive for E. coli, sensitive to Cipro and Rocephin, has switched to Cipro, planning to get Cipro to home for total to 14 days of antibiotic treatment, repeat blood culture has been sent, will be safe to go home 48 hours if negative in the repeated blood culture Continue probiotic management of kidney stones and ureteral stent as per Dr. Gutierrez. Need to have outpatient to discuss medication management strategy, if need to refer her to [facility] Hypertension, was hypotensive because of sepsis upon admission, blood pressure is normalized, will gradually restart home blood pressure medicine GI DVT prophylaxis is covered Continued [facility] stay due to: multiple IV medications needed Discharge planning: home
[2017-10-18] MEDS ORDERED: NURSING VERBAL MED ORDER ONE (17:45)
[2017-10-18] MEDS: CIPROFLOXACIN 500 MG TAB PO SCH (18:08)
[2017-10-18 20:00] VITALS: O2SAT 98
[2017-10-18 23:29] VITALS: BP 147/91; PULSE 73; TEMP 36.7; O2SAT 100
[2017-10-19 07:04] LABS: BASO % 0.7 %; BASO ABS # 0.04 K/uL (0-0.2); EOS % 3.6 %; EOS ABS # 0.21 K/uL (0-0.5); HEMATOCRIT 30.5 % (37-47); HEMOGLOBIN 9.9 g/dL (12.0-16.0); IG# 0.02 K/uL (0.00-0.02); LYMPH % 32.6 %; LYMPH ABS # 1.89 K/uL (1.2-3.4); MEAN CORPUSCULAR HEMOGLOBIN 27.3 pg (25-34); MEAN CORPUSCULAR HGB CONC 32.5 g/dl (32-36); MEAN PLATELET VOLUME 10.3 fL (7.4-10.4); MONO % 7.8 %; MONO ABS # 0.45 K/uL (0.11-0.59); NEUT ABS # 3.19 K/uL (1.4-6.5); PLATELET COUNT 334 K/uL (130-400); RED CELL DISTRIBUTION WIDTH CV 15.1 % (11.5-14.5); RED CELL DISTRIBUTION WIDTH SD 46.6 fL (36.4-46.3)
[2017-10-19 07:28] VITALS: BP 145/87; PULSE 81; TEMP 36.7; O2SAT 99
[2017-10-19 07:34] LABS: ALBUMIN 2.5 gm/dl (3.4-5.0); CALCIUM 8.4 mg/dl (8.5-10.1); CREATININE 0.78 mg/dl (0.60-1.20); POTASSIUM 3.6 mmol/L (3.5-5.1)
[2017-10-19 07:37] LABS: TOTAL PROTEIN 6.7 gm/dl (6.4-8.2)
--- NOTE | 2017-10-19 07:59 | Anesthesiology Progress Note ---
Anesthesia Post Op Note Date & Time October 19, 2017 at 07:58 Vital Signs Pain Intensity: 0.0 Vital Signs Past 12 Hours Date Time Temp Pulse Resp B/P (MAP) Pulse Ox O2 Delivery O2 Flow Rate FiO2 10/19/17 07:28 36.7 81 20 145/87 (106) 99 Room Air 10/19/17 00:00 Room Air 10/18/17 23:29 36.7 73 14 147/91 (109) 100 Room Air 10/18/17 20:00 98 Room Air Notes Mental Status: alert / awake / arousable, participated in evaluation Pt Amnestic to Procedure: Yes Nausea / Vomiting: adequately controlled Pain: adequately controlled Airway Patency, RR, SpO2: stable & adequate BP & HR: stable & adequate Hydration State: stable & adequate Anesthetic Complications: no major complications apparent
[2017-10-19] MEDS ORDERED: LISINOPRIL 5 MG TAB PO SCH (08:00)
[2017-10-19 08:09] LABS: HEMOGLOBIN A1C 6.6 % (4.5-5.6)
[2017-10-19] MEDS: INSULIN ASPART 100 UNITS/ML 3 ML PEN SC SCH (08:19)
[2017-10-19] MEDS: ENOXAPARIN 40 MG/0.4 ML SYR SQ SCH (08:20)
[2017-10-19] MEDS: LACTOBACILLUS ACIDOPHILUS (FLORANEX) TAB PO SCH (08:20)
[2017-10-19] MEDS: CIPROFLOXACIN 500 MG TAB PO SCH (08:39)
--- NOTE | 2017-10-19 08:54 | Progress Note ---
Progress Note Date of Service October 19, 2017. Progress Note Patient's afebrile vital signs are stable She is feeling much better Says she is voiding without problem Is tolerating stent okay Assessment urosepsis obstructing left renal pelvic stone Recommend 2 weeks of antibiotic the organism is sensitive to My office will call her to schedule follow-up
[2017-10-19] MEDS ORDERED: LCTX PO (09:10)
[2017-10-19] MEDS ORDERED: CPR500 PO (09:10)
--- NOTE | 2017-10-19 09:18 | Discharge Instructions ---
Discharge Instructions Date of Service October 19, 2017. Admission Reason for Admission: Pyelonephritis, Septic Shock Discharge Discharge Diagnosis / Problem: Sepsis /bacteremia from ureter obstruction s/p stent Discharge Goals Goal(s): Decrease discomfort, Improve function, Increase independence, Improve disease control, Improve nutritional status, Learn about illness, Diagnostic testing, Therapeutic intervention, Prevent Disease Progression, Specific goals Activity Recommendations Activity Limitations: resume your previous activity . Instructions / Follow-Up Instructions / Follow-Up you had kidney stone with an obstructed left ureter, status post ureteral stent on October 16, 2017 you have E. coli bacteremia and sepsis and pyelonephritics/UTI I am giving you Cipro to home for total to 14 days of antibiotic treatment, Repeat blood culture has been sent, so far is negative, you need to follow up with pcp for the final result I am giving you probiotic you need to folllow up with Dr. Gutierrez in 2 week, his office will call you for the appointment, you should call if no body call you about this. you have Hypertension, was hypotensive upon admission, blood pressure is normalized, will gradually restart home dose blood pressure medicine you have Abnormal liver function test which is improved, hepatitis panel shows chronic hepatitis, encourage her to follow-up with PCP for further evaluation and treatment, referral to GI if needed - you need to follow up with your primary care physician in 1 week, - take medication as instructed, never overdose or any misuse, or take with alcohol, because misuse of medicine may cause organ damage or , call your primary care physician if have questions of medicaitons. - call your primary care physician OR go to local emergency room if has any fever/chill, chest pain, shortness of breathing, nausea/vomiting/abdominal pain , facial droop/slurry speech/local weakness, or if has any questions. - fall precaution - diet as instructed - you need to follow up with your subspecialist - you should understand that it is important to follow up the above instruction , and "not following the above instruction" may cause delayed or missed care of your medical conditions which may cause permanent organ damage and even . Current Hospital Diet Patient's current hospital diet: Diabetes Type 2 Diet Discharge Diet Recommended Diet: Diabetes Type 2 Diet Procedures Procedures Performed: Cystoscopy, Retrograde, Left Ureteral Stent Insertion. Pending Studies Studies pending at discharge: no Laboratory Results Hemoglobin A1c Test 5/7/18 06:46 Range/Units Estimated Average Glucose 143 mg/dl Hemoglobin A1c 6.6 H 4.5-5.6 % Medical Emergencies . Who to Call and When: Medical Emergencies: If at any time you feel your situation is an emergency, please call 911 immediately. . Non-Emergent Contact Non-Emergency issues call your: Primary Care Provider . . "Provider Documentation" section prepared by [address] .
[2017-10-19 09:35] VITALS: BP 145/87; PULSE 81; TEMP 36.7; O2SAT 99
--- NOTE | 2017-10-19 14:35 | Discharge Summary ---
Discharge Summary Date of Service October 19, 2017. Discharge Summary Admission Date: October 16, 2017 at 06:02 Discharge Date: October 19, 2017 Discharge Disposition: Home Principal Diagnosis: kidney stone with an obstructed left ureter, status post ureteral stent on Problems/Secondary Diagnoses: Hypertension Abnormal liver function test which is improved, hepatitis panel shows chronic hepatitis, Immunizations: Have You Had Influenza Vaccine: No History of Tetanus Vaccine?: Unknown History of Pneumococcal: No History of Hepatitis B Vaccine: Unknown Procedures: obstructed left ureter, status post ureteral stent on October 16, 2017 Consultations: Urologist, Medication Reconciliation New Medications: Ciprofloxacin (Ciprofloxacin HCl) 500 Mg Tab 500 MG PO BID for 14 Days, TAB Lactobacillus Acidophilus (Floranex) 1 Tab Tab 4 TAB PO TIDM for 14 Days, TAB Continued Medications: Lisinopril (Zestril) 10 Mg Tab 10 MG PO DAILY, TAB Metformin Hcl (Glucophage) 500 Mg Tab 500 MG PO DAILY, TAB Discharge Exam Doing well, up and walk, denies spiking fever denied night sweats, Review of Systems: Constitutional: No fever, No chills, No sweats, No weight loss, No weakness , No fatigue, No problem reported Eyes: No worsening of vision, No eye pain, No redness, No discharge, No diplopia, No problem reported ENT: No hearing loss, No unusual epistaxis, No nasal symptoms, No sore throat, No tinnitus, No dental problems, No trouble swallowing, No problem reported Respiratory: No cough, No sputum, No wheezing, No shortness of breath, No dyspnea on exertion, No dyspnea at rest, No hemoptysis, No problem reported Cardiovascular: No chest pain, No orthopnea, No PND, No edema, No claudication, No palpitations, No problem reported Abdomen: No pain, No nausea, No vomiting, No diarrhea, No constipation, No GI bleeding, No problem reported Musculoskeletal: No joint pain, No muscle pain, No swelling, No calf pain, No problem reported Genitourinary - Female: No dysuria, No urinary frequency, No urinary urgency , No urinary incontinence, No urinary retention, No hematuria, No dysmenorrhea, No menorrhagia, No metrorrhagia, No rash, No vaginal bleeding, No vaginal discharge, No vaginal itching, No vulvodynia, No , No problem reported Neurologic: No memory loss, No paralysis, No weakness, No numbness/tingling , No vertigo, No balance problems, No problem reported Psychiatric: No depression symptoms, No anhedonism, No anxiety, No insomnia , No substance abuse, No problem reported Hematologic / Lymphatic: No abnormal bleeding/bruising, No clotting problems , No swollen lymph nodes, No night sweats, No problem reported Integumentary: No rash, No itch, No new/changing skin lesions, No color change, No bleeding, No problem reported Physical Exam: General Appearance: WD/WN, no apparent distress Eyes: normal inspection, PERRL ENT: normal ENT inspection, hearing grossly normal Neck: supple, no adenopathy Respiratory/Chest: chest non-tender, lungs clear Cardiovascular: regular rate, rhythm, no edema, no gallop Abdomen / GI: normal bowel sounds, non tender, soft, no organomegaly Extremities: normal inspection, no calf tenderness, normal capillary refill Neurologic/Psychiatric: [employer] II-XII nml as tested, no motor/sensory deficits , alert, normal mood/affect Skin: normal color, warm/dry Hospital Course 47-year-old white female admitted on October 16, 2017 because of sepsis, ureter obstruction Nephrolithiasis with an obstructed left ureter, status post ureteral stent on October 16, 2017 E. coli bacteremia and sepsis and pyelonephritis /UTI Leukocytosis secondary to problem sepsis and pyelonephritis Type 2 diabetes mellitus. Hypertension. 2 out of 2 blood culture positive for E. coli, sensitive to Cipro and Rocephin, has switched to Cipro, planning to get Cipro to home for total to 14 days of antibiotic treatment, repeat blood culture has been sent, patient tolerated Cipro well, no more spiking fever, generally doing good, blood culture so far 48 hours isnegative in the repeated blood culture, feels to be okay to discharge patient home, has recommended her to follow-up with PCP for the final repeated blood culture results, adjust antibiotics if needed Continue probiotic management of kidney stones and ureteral stent as per Dr. Gutierrez. Need to have outpatient to discuss medication management strategy, if need to refer her to [facility] Hypertension, was hypotensive because of sepsis upon admission, blood pressure is normalized, will restart home blood pressure medicine upon discharge GI DVT prophylaxis is covered Instructions / Follow-Up you had kidney stone with an obstructed left ureter, status post ureteral stent on October 16, 2017 you have E. coli bacteremia and sepsis and pyelonephritics/UTI I am giving you Cipro to home for total to 14 days of antibiotic treatment, Repeat blood culture has been sent, so far is negative, you need to follow up with pcp for the final result I am giving you probiotic you need to folllow up with Dr. Gutierrez in 2 week, his office will call you for the appointment, you should call if no body call you about this. you have Hypertension, was hypotensive upon admission, blood pressure is normalized, will gradually restart home dose blood pressure medicine you have Abnormal liver function test which is improved, hepatitis panel shows chronic hepatitis, encourage her to follow-up with PCP for further evaluation and treatment, referral to GI if needed - you need to follow up with your primary care physician in 1 week, - take medication as instructed, never overdose or any misuse, or take with alcohol, because misuse of medicine may cause organ damage or , call your primary care physician if have questions of medicaitons. - call your primary care physician OR go to local emergency room if has any fever/chill, chest pain, shortness of breathing, nausea/vomiting/abdominal pain , facial droop/slurry speech/local weakness, or if has any questions. - fall precaution - diet as instructed - you need to follow up with your subspecialist - you should understand that it is important to follow up the above instruction , and "not following the above instruction" may cause delayed or missed care of your medical conditions which may cause permanent organ damage and even . Total Time Spent: Greater than 30 minutes This includes examination of the patient, discharge planning, medication reconciliation, and communication with other providers. Discharge Instructions Please refer to the electronic Patient Visit Report (Discharge Instructions) for additional information. Additional Copies To Rodney Gutierrez MD
== END 2017-10-19 11:02 | disposition home or self-care (01) | DRG 871 ==
LOC: C.EDB 02:13 → C.2T 06:02 → ENRESERV 06:11 → C.2T 14:54 → ENRESERV 10-18 15:50 → C.MS4W 10-18 17:58
PROVIDERS: ADMIT Hospitalist; ATTEND Hospitalist
PROC: 0T778DZ Dilation of Left Ureter with Intraluminal Device, Via Natural or Artificial Opening Endoscopic (ICD-10-PCS; principal; 2017-10-16 11:00)
DX: A41.51 Sepsis due to Escherichia coli [E. coli] (principal); R65.21 Severe sepsis with septic shock; N20.2 Calculus of kidney with calculus of ureter; N10 Acute pyelonephritis; N13.6 Pyonephrosis; N17.9 Acute kidney failure, unspecified; B18.1 Chronic viral hepatitis B without delta-agent; E11.9 Type 2 diabetes mellitus without complications; I10 Essential (primary) hypertension; E86.0 Dehydration; I95.9 Hypotension, unspecified; D64.9 Anemia, unspecified; Z79.84 Long term (current) use of oral hypoglycemic drugs; Z79.899 Other long term (current) drug therapy

== ENCOUNTER → 2017-10-29 | Outpatient (CLI) | payer BC ==
[~2017-10-29] MED LIST: CPR500 PO; GLC/500 PO; LCTX PO; LISI-461 PO
--- NOTE | 2017-10-29 11:46 | DIAGNOSTIC IMAGING REPORT ---
KUB CLINICAL HISTORY: N20.0 Calculus of [id number] COMPARISON STUDY: CT scan dated 10/16/2017 FINDINGS: There is no pathologic bowel dilatation. There is a left-sided double pigtail nephroureteral stent. There are multiple right renal calculi including ar 24 mm calculus within the left renal pelvis. IMPRESSION: 1. Left-sided nephrolithiasis 2. Left-sided nephroureteral stent Electronically signed by: James Cantu M.D. 10/29/2017 11:45 AM Dictated Date/Time: 10/29/2017 11:44 AM
== END | disposition home or self-care (01) ==
LOC: C.RAD 11:06
PROVIDERS: ATTEND Urology
DX: N20.0 Calculus of kidney (principal)

== ENCOUNTER → 2017-11-02 | Outpatient (CLI) | payer BC | END | disposition home or self-care (01) | LOC: C.LAB 16:52 | PROVIDERS: ATTEND Nurse Practitioner Adult Health | DX: R19.7 Diarrhea, unspecified (principal) ==

== ENCOUNTER 2021-11-04 18:15 | Inpatient (IN) ==
[2021-11-04] MEDS ORDERED: ACETAMINOPHEN 1,000 MG/100 ML VIAL IV STA (18:29)
[2021-11-04] MEDS ORDERED: MoRPHine SULFATE 10 MG/ML CARP/VIAL IV STA (18:29)
[2021-11-04] MEDS ORDERED: KETOROLAC TROMETHAMINE 15 MG/ML VIAL IV STA (18:29)
--- NOTE | 2021-11-04 19:04 | Emergency Department Note ---
Impression & Plan Calculus of proximal left ureter, Hydronephrosis of left kidney, Left flank pain ED Provider Note NAME: ISAK KNIGHT AGE: 51 SEX: F ARRIVES VIA: Walk-In INFORMANT: Patient ED PROVIDER(S): Christiano Bravo MD CHIEF COMPLAINT: Flank pain PLAN: Disposition: Admit MEDICAL DECISION MAKING: The patient is a pleasant 51-year-old woman with a past medical history of nephrolithiasis with h/o nephrostomy for stone, hypertension, diabetes who presents emerged department accompanied by her friend for evaluation of ongoing left flank pain which began on and was seen in this facility diagnosed with a 7 mm obstructing ureteral stone. She reports she has been taking Flomax prescribed and the oxycodone which does help at times within the pain returns and becomes severe. She reports she has been feeling feverish at night but has not taken her temperature. She reports intermittent nausea but no vomiting. She reports having loose stool. She denies cough, congestion, cp, sob. On arrival patient is uncomfortable no acute distress, afebrile, with HR 110s and otherwise stable vital signs. She appears clinically dry. She has mild left lower quadrant and flank discomfort without discrete tenderness. WBC 11.5, nonspecific. H/H 9.3/20.4 decreased from recent but no report of bleeding. Platelets within normal limits. Chemistry without metabolic acidosis. Potassium 3.0 electrolytes otherwise unremarkable. Lactic acid 0.6, within normal limits. Procalcitonin is slightly elevated at 0.83. LFTs unremarkable. Lipase not elevated. hCG was negative. UA with WBCs but no bacteria and epithelial cells present. Nitrite negative. CT of the abdomen pelvis was performed and demonstrates persistence of the patient's UPJ stone without change in position measured at 1 cm x 0.7 cm with increased severe hydronephrosis. Given the size of the patient's kidney stone and persistence of her symptoms reasonable to proceed with admission for further management. Blood cultures were drawn and she was treated with ceftriaxone out of caution given her reported feverishness however the patient's prior UA grew only mixed maxi and her sample today does appear contaminated. Case was discussed with Reinaldo Lazcano urology SAI with ELPIDIO Lo urology on-call. Case was discussed with Dr. Resendiz, [facility] [place] [facility] hospitalist, who will evaluate the patient for admission. Triage Nursing notes reviewed and agree them. Prior medical records reviewed Vital Signs: reviewed and remarkable for tachycardia. Differential diagnosis: Renal colic, UTI, appendicitis, diverticulitis, mesenteric ischemia, aortic pathology, infections, inflammatory bowel disease, PUD, biliary pathology, as well as other pathologies. ER treatment provided: See below. Diagnostics interpreted by me: Cardiac Monitoring: An order for continuous cardiac monitoring was placed and demonstrated normal sinus rhythm, 84 bpm, no ectopy. Laboratory studies: See below Imaging studies: See below Consultation(s): Reinaldo Lazcano, urology SAI with Dr. Young, [place] urology on-call. Case was discussed with Dr. Resendiz, [facility] [place] [facility] hospitalist, who will evaluate the patient for admission. HPI: The patient is a pleasant 51-year-old woman with a past medical history of nephrolithiasis with h/o nephrostomy for stone, hypertension, diabetes who presents emerged department accompanied by her friend for evaluation of ongoing left flank pain which began on and was seen in this facility diagnosed with a 7 mm obstructing ureteral stone. She reports she has been taking Flomax prescribed and the oxycodone which does help at times within the pain returns and becomes severe. She reports she has been feeling feverish at night but has not taken her temperature. She reports intermittent nausea but no vomiting. She reports having loose stool. She denies cough, congestion, cp, sob. ROS: See above HPI for pertinent positives & negatives. A total of 10 systems reviewed and were otherwise negative. VITALS:See Below PHYSICAL EXAMINATION: GENERAL: Awake, alert, uncomfortable-appearing, in no distress HENT: Normocephalic, atraumatic. Oropharynx with dry mucous membranes and otherwise unremarkable. EYES: Normal conjunctiva. Sclera non-icteric. NECK: Supple. No nuchal rigidity. FROM. No JVD. RESPIRATORY: Clear to auscultation. CARDIAC: Regular rate, normal rhythm. Extremities warm and well perfused. Pulses equal. ABDOMEN: Soft, non-distended. Mild left lower quadrant and flank discomfort without discrete tenderness. No rebound or guarding. No masses. RECTAL: Deferred. MUSCULOSKELETAL: Chest examination reveals no tenderness. The back is symmetrical on inspection without obvious abnormality. There is no CVA tenderness to palpation. No joint edema. LOWER EXTREMITIES: Calves are equal size bilaterally and non-tender. No edema. No discoloration. NEURO: Normal sensorium. No sensory or motor deficits noted. SKIN: No rash or jaundice noted. Christiano Bravo MD Past Med/Surg History Medical History Abscess of right breast Anemia Diabetes Dyslipidemia Hypertension Kidney stones Obesity Surgical History History of removal of calculus of renal pelvis through percutaneous nephrostomy Social History Smoking Status: Never smoker Second Hand Exposure: No; Do You Dip or Chew Tobacco: No; Hx Alcohol Use: No Hx Substance Use: No Preferred Language: [place] [employer] Required: No Beliefs That Will Affect Care: None marital status: Current Living Situation: Spouse Current Living Situation Comment: Lives with current occupational status: unemployed Other Information That Helps Us Care for You: No Feels Safe at Home: Yes Safety Concerns: Feels Safe At This Time Assistive Devices: None Allergies Allergies Allergy/AdvReac Type Severity Reaction Status Date / Time No Known Allergies Allergy Verified 11/04/21 20:25 Home Meds Home Medications Medication Instructions Recorded Confirmed lisinopril 10 mg tablet 10 mg PO QAM 08/02/19 11/04/21 atorvastatin 20 mg tablet 20 mg PO QDD 10/31/21 11/04/21 glimepiride 2 mg tablet 2 mg PO QDD 10/31/21 11/04/21 tamsulosin 0.4 mg capsule (Flomax) 0.4 mg PO QDD 11/04/21 11/04/21 Previous Rx's Medication Instructions Recorded oxycodone 5 mg tablet 5 mg PO Q4H PRN #15 tab 10/31/21 Results & Data (ED) Vital Signs Vital Signs - 24 hr 11/04/21 18:17 11/04/21 18:46 11/04/21 18:52 Temperature 37.3 C Temperature Source Temporal Artery Scan Pulse Rate 119 H Pulse Rate [Right Finger] 103 H Pulse Rhythm [Right Finger] Regular Pulse Strength [Right Finger] Normal Respiratory Rate 18 20 Respiratory Effort / Characteristics Non-Labored Spontaneous Respiratory Depth Normal Respiratory Pattern Regular Blood Pressure 171/89 H Blood Pressure [Left Arm] 136/90 Blood Pressure Mean 116 Blood Pressure Mean [Left Arm] 105 Blood Pressure Position [Left Arm] Sitting Pulse Oximetry 95 98 98 Oxygen Delivery Method Room Air Nasal Cannula Room Air Sepsis Recent Fever Within 48 Hours No Sepsis New/Unexplained Change in Mental Status No Sepsis Action Taken by Nursing No Action Required 11/04/21 20:15 Temperature Temperature Source Pulse Rate Pulse Rate [Right Finger] 80 Pulse Rhythm [Right Finger] Pulse Strength [Right Finger] Respiratory Rate 16 Respiratory Effort / Characteristics Respiratory Depth Respiratory Pattern Blood Pressure Blood Pressure [Left Arm] 117/71 Blood Pressure Mean Blood Pressure Mean [Left Arm] 86 Blood Pressure Position [Left Arm] Pulse Oximetry 98 Oxygen Delivery Method Room Air Sepsis Recent Fever Within 48 Hours Sepsis New/Unexplained Change in Mental Status Sepsis Action Taken by Nursing Laboratory Data Attestation: I reviewed the patient's lab results. Result diagrams: 11/05/21 07:17 11/05/21 07:17 Lab Results 11/04/21 11/04/21 11/04/21 Range/Units 18:38 18:38 18:38 WBC 11.56 H (4.8-10.8) K/uL RBC 3.79 L (4.2-5.4) M/uL Hgb 9.3 L (12.0-16.0) g/dL Hct 28.4 L (37-47) % MCV 74.9 L (80-100) fL MCH 24.5 L (25-34) pg MCHC 32.7 (32-36) g/dL RDW Std Deviation 43.6 (36.4-46.3) fL RDW Coeff of Nadeem 16.0 H (11.5-14.5) % Plt Count 366 (130-400) K/uL MPV 11.6 H (7.4-10.4) fL Immature Gran % (Auto) 0.6 % Neut % (Auto) 73.0 % Lymph % (Auto) 15.1 % [place] % (Auto) 10.9 % Eos % (Auto) 0.3 % Baso % (Auto) 0.1 % Neut # (Auto) 8.43 H (1.4-6.5) K/uL Lymph # (Auto) 1.75 (1.2-3.4) K/uL [place] # (Auto) 1.26 H (0.11-0.59) K/uL Eos # (Auto) 0.04 (0-0.5) K/uL Baso # (Auto) 0.01 (0-0.2) K/uL Immature Gran # (Auto) 0.07 H (0.00-0.02) K/uL Sodium 132 L (136-145) mmol/L Potassium 3.0 L (3.5-5.1) mmol/L Chloride 98 (98-107) mmol/L Carbon Dioxide 25 (21-32) mmol/L Anion Gap 9 (3-11) BUN 7 (6-23) mg/dl Creatinine 0.87 (0.6-1.2) mg/dl Est Cr Clr Drug Dosing 78.0 ml/min Est GFR ( Amer) 90.7 ml/min Est GFR (Non-Af Amer) 78.2 ml/min BUN/Creatinine Ratio 8.0 L (10-20) Glucose 215 H (70-99(Fasting)) mg/dl Lactate (0.4-2.0) mmol/L Calcium 8.7 (8.5-10.1) mg/dl Total Bilirubin 1.3 H (0.2-1.0) mg/dl AST 22 (13-39) U/L ALT 35 (7-52) U/L Alkaline Phosphatase 151 H (34-104) U/L Total Protein 7.3 (6.0-8.3) gm/dl Albumin 3.5 (3.4-5.0) gm/dl Globulin 3.8 (2.5-4.0) gm/dl Albumin/Globulin Ratio 0.9 (0.9-2) Lipase 46 (11-82) U/L Procalcitonin (0-0.5) ng/ml HCG, Qual Negative (Negative) Urine Color Urine Appearance (Clear) Urine pH (4.5-7.5) Ur Specific [place] (1.000-1.030) Urine Protein (Negative) Urine Glucose (UA) (Negative) Urine Ketones (Negative) Urine Blood (Negative) Urine Nitrite (Negative) Urine Bilirubin (Negative) Urine Urobilinogen (Negative) Ur Leukocyte Esterase (Negative) Urine WBC (Auto) (0-5) /hpf Urine RBC (Auto) (0-4) /hpf U Hyaline Cast (Auto) (0-5) /lpf U Epithel Cells (Auto) (0-5) /lpf Urine Bacteria (Auto) (Negative) SARS-CoV-2, RNA, NAAT (NEGATIVE) 11/04/21 11/04/21 11/04/21 Range/Units 19:57 20:48 20:48 WBC (4.8-10.8) K/uL RBC (4.2-5.4) M/uL Hgb (12.0-16.0) g/dL Hct (37-47) % MCV (80-100) fL MCH (25-34) pg MCHC (32-36) g/dL RDW Std Deviation (36.4-46.3) fL RDW Coeff of Nadeem (11.5-14.5) % Plt Count (130-400) K/uL MPV (7.4-10.4) fL Immature Gran % (Auto) % Neut % (Auto) % Lymph % (Auto) % [place] % (Auto) % Eos % (Auto) % Baso % (Auto) % Neut # (Auto) (1.4-6.5) K/uL Lymph # (Auto) (1.2-3.4) K/uL [place] # (Auto) (0.11-0.59) K/uL Eos # (Auto) (0-0.5) K/uL Baso # (Auto) (0-0.2) K/uL Immature Gran # (Auto) (0.00-0.02) K/uL Sodium (136-145) mmol/L Potassium (3.5-5.1) mmol/L Chloride (98-107) mmol/L Carbon Dioxide (21-32) mmol/L Anion Gap (3-11) BUN (6-23) mg/dl Creatinine (0.6-1.2) mg/dl Est Cr Clr Drug Dosing ml/min Est GFR ( Amer) ml/min Est GFR (Non-Af Amer) ml/min BUN/Creatinine Ratio (10-20) Glucose (70-99(Fasting)) mg/dl Lactate 0.6 (0.4-2.0) mmol/L Calcium (8.5-10.1) mg/dl Total Bilirubin (0.2-1.0) mg/dl AST (13-39) U/L ALT (7-52) U/L Alkaline Phosphatase (34-104) U/L Total Protein (6.0-8.3) gm/dl Albumin (3.4-5.0) gm/dl Globulin (2.5-4.0) gm/dl Albumin/Globulin Ratio (0.9-2) Lipase (11-82) U/L Procalcitonin (0-0.5) ng/ml HCG, Qual (Negative) Urine Color Yellow Urine Appearance Clear (Clear) Urine pH 6.5 (4.5-7.5) Ur Specific [place] 1.016 (1.000-1.030) Urine Protein 1+ H (Negative) Urine Glucose (UA) 1+ H (Negative) Urine Ketones Negative (Negative) Urine Blood 2+ H (Negative) Urine Nitrite Negative (Negative) Urine Bilirubin Negative (Negative) Urine Urobilinogen Negative (Negative) Ur Leukocyte Esterase Trace H (Negative) Urine WBC (Auto) 10-30 H (0-5) /hpf Urine RBC (Auto) 5-10 H (0-4) /hpf U Hyaline Cast (Auto) 0 (0-5) /lpf U Epithel Cells (Auto) 20-30 H (0-5) /lpf Urine Bacteria (Auto) Negative (Negative) SARS-CoV-2, RNA, NAAT NEGATIVE (NEGATIVE) 11/04/21 Range/Units 20:55 WBC (4.8-10.8) K/uL RBC (4.2-5.4) M/uL Hgb (12.0-16.0) g/dL Hct (37-47) % MCV (80-100) fL MCH (25-34) pg MCHC (32-36) g/dL RDW Std Deviation (36.4-46.3) fL RDW Coeff of Nadeem (11.5-14.5) % Plt Count (130-400) K/uL MPV (7.4-10.4) fL Immature Gran % (Auto) % Neut % (Auto) % Lymph % (Auto) % [place] % (Auto) % Eos % (Auto) % Baso % (Auto) % Neut # (Auto) (1.4-6.5) K/uL Lymph # (Auto) (1.2-3.4) K/uL [place] # (Auto) (0.11-0.59) K/uL Eos # (Auto) (0-0.5) K/uL Baso # (Auto) (0-0.2) K/uL Immature Gran # (Auto) (0.00-0.02) K/uL Sodium (136-145) mmol/L Potassium (3.5-5.1) mmol/L Chloride (98-107) mmol/L Carbon Dioxide (21-32) mmol/L Anion Gap (3-11) BUN (6-23) mg/dl Creatinine (0.6-1.2) mg/dl Est Cr Clr Drug Dosing ml/min Est GFR ( Amer) ml/min Est GFR (Non-Af Amer) ml/min BUN/Creatinine Ratio (10-20) Glucose (70-99(Fasting)) mg/dl Lactate (0.4-2.0) mmol/L Calcium (8.5-10.1) mg/dl Total Bilirubin (0.2-1.0) mg/dl AST (13-39) U/L ALT (7-52) U/L Alkaline Phosphatase (34-104) U/L Total Protein (6.0-8.3) gm/dl Albumin (3.4-5.0) gm/dl Globulin (2.5-4.0) gm/dl Albumin/Globulin Ratio (0.9-2) Lipase (11-82) U/L Procalcitonin 0.83 H (0-0.5) ng/ml HCG, Qual (Negative) Urine Color Urine Appearance (Clear) Urine pH (4.5-7.5) Ur Specific [place] (1.000-1.030) Urine Protein (Negative) Urine Glucose (UA) (Negative) Urine Ketones (Negative) Urine Blood (Negative) Urine Nitrite (Negative) Urine Bilirubin (Negative) Urine Urobilinogen (Negative) Ur Leukocyte Esterase (Negative) Urine WBC (Auto) (0-5) /hpf Urine RBC (Auto) (0-4) /hpf U Hyaline Cast (Auto) (0-5) /lpf U Epithel Cells (Auto) (0-5) /lpf Urine Bacteria (Auto) (Negative) SARS-CoV-2, RNA, NAAT (NEGATIVE) Administered Medications Atorvastatin Calcium (Atorvastatin 20 Mg Tab) 20 mg PO QAM ERIN Stop: 12/05/21 08:59 Last Admin: 11/05/21 08:54 Dose: 20 mg Documented by: [id number] Glimepiride (Glimepiride 2 Mg Tab) 2 mg PO QDD [facility] Stop: 12/05/21 16:29 Last Admin: 11/05/21 17:50 Dose: 2 mg Documented by: [id number] Lactated Ringer's (Lr) 1,000 mls @ 125 mls/hr IV .Q8H [facility] Stop: 12/04/21 22:03 Last Admin: 11/05/21 13:27 Dose: 125 mls/hr Documented by: [id number] Infusion: 11/05/21 13:27 Dose: 125 mls/hr Documented by: [id number] Admin: 11/05/21 05:44 Dose: 125 mls/hr Documented by: [id number] Infusion: 11/05/21 05:44 Dose: 125 mls/hr Documented by: [id number] Admin: 11/04/21 22:35 Dose: 125 mls/hr Documented by: [id number] Insulin Aspart (Insulin Aspart Per Unit) 0 units SC Q6 [facility] Stop: 12/05/21 00:00 Last Admin: 11/05/21 17:52 Dose: 2 units Documented by: [id number] Cosigned by: [id number] Admin: 11/05/21 12:17 Dose: 1 units Documented by: [id number] Cosigned by: [id number] Admin: 11/05/21 06:35 Dose: 1 units Documented by: [id number] Cosigned by: [id number] Admin: 11/05/21 00:22 Dose: 3 units Documented by: [id number] Cosigned by: [id number] Lisinopril (Lisinopril 10 Mg Tab) 10 mg PO QAM [facility] Stop: 12/05/21 08:59 Last Admin: 11/05/21 08:54 Dose: 10 mg Documented by: [id number] Melatonin (Melatonin 3 Mg Tab) 3 mg PO HS PRN PRN Reason: Sleep Stop: 12/05/21 00:09 Last Admin: 11/05/21 00:23 Dose: 3 mg Documented by: [id number] Tamsulosin HCl (Tamsulosin Hcl 0.4 Mg Cap) 0.4 mg PO DAILY [facility] Stop: 12/05/21 08:59 Last Admin: 11/05/21 08:54 Dose: 0.4 mg Documented by: [id number] Discontinued Medications Acetaminophen (Ofirmev) 1,000 mg in 100 mls @ 400 mls/hr IV NOW STA Stop: 11/04/21 18:43 Last Infusion: 11/04/21 19:32 Dose: 0 mls/hr Documented by: [id number] Admin: 11/04/21 19:00 Dose: 400 mls/hr Documented by: [id number] Ceftriaxone Sodium (Rocephin) 2,000 mg in 70 mls @ 140 mls/hr IV NOW STA Stop: 11/04/21 21:02 Last Infusion: 11/04/21 21:48 Dose: 0 mls/hr Documented by: [id number] Admin: 11/04/21 21:03 Dose: 140 mls/hr Documented by: [id number] Sodium Chloride (Nss 1000ml) 1,000 mls @ 999 mls/hr IV .Q1H1M ONE Stop: 11/04/21 21:33 Last Infusion: 11/04/21 22:06 Dose: 0 mls/hr Documented by: [id number] Admin: 11/04/21 21:03 Dose: 999 mls/hr Documented by: [id number] Ioversol (Optiray 320 100ml) 94 ml IV ONCE ONE Stop: 11/04/21 19:49 Last Admin: 11/04/21 19:48 Dose: 94 ml Documented by: [id number] Ketorolac Tromethamine (Ketorolac Tromethamine 15 Mg/Ml Vial) 15 mg IV NOW STA Stop: 11/04/21 18:30 Last Admin: 11/04/21 19:00 Dose: 15 mg Documented by: [id number] Morphine Sulfate (Morphine Sulfate 10 Mg/Ml Carp/Vial) 6 mg IV NOW STA Stop: 11/04/21 18:30 Last Admin: 11/04/21 19:01 Dose: 6 mg Documented by: [id number] Potassium Chloride (Potassium Chloride Crtab 20 Meq Tabcr) 40 meq PO NOW STA Stop: 11/04/21 21:14 Last Admin: 11/04/21 21:47 Dose: 40 meq Documented by: [id number] Potassium Chloride (Potassium Chloride Crtab 20 Meq Tabcr) 40 meq PO QAM ONE Stop: 11/05/21 09:01 Last Admin: 11/05/21 08:54 Dose: 40 meq Documented by: [id number] Imaging Data Radiologist's Impression: Abdomen/Pelvis CT 11/04/21 19:13 CT OF THE ABDOMEN AND PELVIS WITH CONTRAST CLINICAL HISTORY: Left flank pain, obstructing ureteral stone COMPARISON STUDY: CT of the abdomen and pelvis and KUB October 31, 2021. TECHNIQUE: Following IV administration of 94 mL of Optiray, axial images of the abdomen and pelvis were obtained from the lung bases to the proximal femurs. Images were reviewed in the axial, sagittal, and coronal planes. IV contrast was administered without complication. Automated exposure control was utilized for the study. A dose lowering technique was utilized adhering to the principles of ALARA. CT DOSE: 422.19 mGy.cm FINDINGS: Lung bases are unremarkable. No pneumatosis, free air or portal venous gas is present. Liver, spleen, adrenal glands, right kidney and pancreas are unremarkable. There is no biliary or pancreatic ductal dilatation. Gallbladder is contracted. Severe left hydronephrosis has slightly progressed. There has been minimal distal migration of a 1 x 0.7 cm left ureteropelvic junction calculus since prior CT. Prominent adjacent lymph nodes are probably reactive. No additional urinary calculi are present. Left nephrogram is delayed. Urothelial thickening is noted. There is no evidence for a bowel obstruction. The appendix is normal. There is trace fluid within the pelvis. There are multiple suspected fibroids, including a 2.8 cm anterior fundal fibroid. There is a suspected large exophytic fibroid which extends into the right lower quadrant. These findings are suboptimally assessed by CT but are similar to [facility] CT of October 16, 2017. IMPRESSION: 1. 1 x 0.7 cm left ureteropelvic junction calculus which results in severe left hydronephrosis which has slightly progressed. Delayed left nephrogram. Urothelial thickening and mild adjacent stranding is likely related to the obstruction. A superimposed infectious process is considered less likely however cannot be excluded by CT. 2. Multiple suspected fibroids, suboptimally assessed by CT. ACT 112: Negative or not required by law. Electronically signed by: Edy Javed M.D. 11/04/2021 8:18 PM Discharge Plan Visit Data Chief Complaint: Kidney Stone Stated Complaint: KIDNEY STONES, DIARRHEA, SYMPTOMS WORSENING ED Provider: Christiano Bravo Discharge Problem: Calculus of proximal left ureter, Hydronephrosis of left kidney, Left flank pain Patient Disposition: Admitted As Inpatient Discharge Instructions Interventions: ED Discharge Assessment Last Done: 11/04/21 21:49
[2021-11-04 19:23] LABS: Pregnancy Test, Serum Negative (Negative)
[2021-11-04 19:24] LABS: Albumin Globulin Ratio 0.9 (0.9-2); Albumin Level 3.5 gm/dl (3.4-5.0); Bilirubin,Total 1.3 mg/dl (0.2-1.0); Calcium 8.7 mg/dl (8.5-10.1); Est GFR (African American) 90.7 ml/min; Est GFR (Non-African American) 78.2 ml/min; Globulin 3.8 gm/dl (2.5-4.0); Total Protein 7.3 gm/dl (6.0-8.3)
[2021-11-04 19:40] LABS: Basophils # (auto) 0.01 K/uL (0-0.2); Basophils % (auto) 0.1 %; Eosinophils # (auto) 0.04 K/uL (0-0.5); Eosinophils % (auto) 0.3 %; Hematocrit (blood only) 28.4 % (37-47); Hemoglobin 9.3 g/dL (12.0-16.0); Immature Granulocytes # (auto) 0.07 K/uL (0.00-0.02); Immature Granulocytes % (auto) 0.6 %; Lymphocytes # (auto) 1.75 K/uL (1.2-3.4); Lymphocytes % (auto) 15.1 %; Mean Corpuscular Hemoglobin 24.5 pg (25-34); Mean Corpuscular Hgb Conc 32.7 g/dL (32-36); Mean Corpuscular Volume 74.9 fL (80-100); Mean Platelet Volume 11.6 fL (7.4-10.4); Monocytes # (auto) 1.26 K/uL (0.11-0.59); Monocytes % (auto) 10.9 %; Neutrophils # (auto) 8.43 K/uL (1.4-6.5); Platelet Count 366 K/uL (130-400); RDW Standard Deviation 43.6 fL (36.4-46.3); Red Blood Count 3.79 M/uL (4.2-5.4); White Blood Count 11.56 K/uL (4.8-10.8)
[2021-11-04] MEDS ORDERED: OPTIRAY 320 100ml IV ONE (19:48)
--- NOTE | 2021-11-04 20:20 | CT Scan Report ---
CT OF THE ABDOMEN AND PELVIS WITH CONTRAST CLINICAL HISTORY: Left flank pain, obstructing ureteral stone COMPARISON STUDY: CT of the abdomen and pelvis and KUB October 31, 2021. TECHNIQUE: Following IV administration of 94 mL of Optiray, axial images of the abdomen and pelvis we re obtained from the lung bases to the proximal femurs. Images were reviewed in the axial, sagittal, and coronal planes. IV contrast was administered without complication. Automated exposure control wa s utilized for the study. A dose lowering technique was utilized adhering to the principles of ALARA . CT DOSE: 422.19 mGy.cm FINDINGS: Lung bases are unremarkable. No pneumatosis, free air or portal venous gas is present. Live r, spleen, adrenal glands, right kidney and pancreas are unremarkable. There is no biliary or pancrea tic ductal dilatation. Gallbladder is contracted. Severe left hydronephrosis has slightly progressed. There has been minimal distal migration of a 1 x 0.7 cm left ureteropelvic junction calculus since p rior CT. Prominent adjacent lymph nodes are probably reactive. No additional urinary calculi are pres ent. Left nephrogram is delayed. Urothelial thickening is noted. There is no evidence for a bowel obs truction. The appendix is normal. There is trace fluid within the pelvis. There are multiple suspecte d fibroids, including a 2.8 cm anterior fundal fibroid. There is a suspected large exophytic fibroid which extends into the right lower quadrant. These findings are suboptimally assessed by CT but are s imilar to earlier CT of October 16, 2017. IMPRESSION: 1. 1 x 0.7 cm left ureteropelvic junction calculus which results in severe left hydronephrosis which has slightly progressed. Delayed left nephrogram. Urothelial thickening and mild adjacent stranding i s likely related to the obstruction. A superimposed infectious process is considered less likely [place] cannot be excluded by CT. 2. Multiple suspected fibroids, suboptimally assessed by CT. ACT 112: Negative or not required by law. Electronically signed by: Edy Javed M.D. 11/04/2021 8:18 PM
[2021-11-04 20:25] LABS: Appearance Urine Clear (Clear); Bacteria Urine Automated Negative (Negative); Bilirubin Urine Negative (Negative); Blood Urine 2+ (Negative); Cast Urine Automated 0 /lpf (0-5); Color Urine Yellow; Epithelial Cell Urine Auto 20-30 /lpf (0-5); Glucose Urine UA 1+ (Negative); Ketones Urine Negative (Negative); Leukocyte Esterase Urine Trace (Negative); Nitrite Urine Negative (Negative); Protein Urine 1+ (Negative); Specific Gravity Urine 1.016 (1.000-1.030); Urobilinogen Urine Negative (Negative); pH Urine 6.5 (4.5-7.5)
[2021-11-04] MEDS ORDERED: cefTRIAXone SODIUM 2,000 MG/70 ML BAG IV STA (20:33)
[2021-11-04] MEDS ORDERED: SODIUM CHLORIDE 0.9% 1000ML 1,000 ML IV ONE (20:33)
--- NOTE | 2021-11-04 21:07 | History & Physical Report ---
Date of Service November 04, 2021 Assessment & Plan (1) Calculus of proximal left ureter: Plan: - Pain control with Tylenol, Toradol, morphine. Zofran for nausea/vomiting. Any Flomax. - IVF, ceftriaxone 2 mg daily. - Urology consulted, appreciate their recommendations. - We will make patient n.p.o. at midnight pending possible intervention tomorrow. (2) Hydronephrosis of left kidney: (3) Hypokalemia: Plan: - 3.0, replete and recheck in AM. (4) Hypertension: Plan: - Continue lisinopril 10 mg daily (5) Diabetes: Plan: - Hold glimepiride, switch to SSI. - Accu-Cheks ACHS. - CC diet. - Most recent HbA1c in our system from 2017, however patient reports she just had outpatient labs done in September and this was 6.7, therefore will defer for now. (6) Hyperlipidemia: Plan: - Continue atorvastatin 20 mg daily. Plan: - Admit to [facility]. - SCDs for DVT PPx. - Full code. History of Present Illness Chief Complaint: Fever, body aches Primary Care Provider: BILL Lewis Ms. Walker is a 51-year-old female with a past medical history of hypertension, diabetes, hyperlipidemia, and kidney stone in 2018 requiring nephrostomy tube who presents today with ongoing left flank pain and new development of fever, body aches, and diarrhea. Patient was seen in our ED on 10/31 for new onset left flank pain, CT at that time revealed 7 mm left UPJ calculus with moderate left- sided hydronephrosis. This occasion, the case was discussed with urology and patient and she was discharged with Flomax and oxycodone 5 mg, with plans to follow-up with urology this week. However, although her pain has been well controlled with OTC meds and oxycodone, she has developed diffuse body aches, fevers, dysuria, and diarrhea and presents today for further evaluation. In ED, vital signs are stable and within normal limits. Labs are significant for WBC 11.56, Hgb 9.3 (11.2 on 10/31), potassium 3.0, glucose 215, T bili 1.3, alk phos 151. UA with RBCs, WBCs, trace leuk esterase. Blood and urine culture sent. CT A/P showed a 1 x 0.7 cm left ureteropelvic junction calculus with severe left hydronephrosis. Urothelial thickening and mild adjacent stranding likely related to obstruction. Patient received Tylenol, Toradol, morphine in ED for pain, as well as ceftriaxone and 1L NSS. Hospitalist service was consulted for further evaluation and admission. Allergies Allergy/AdvReac Type Severity Reaction Status Date / Time No Known Allergies Allergy Verified 11/04/21 20:25 Home Medications Medication Instructions Recorded Confirmed Type lisinopril 10 mg tablet 10 mg PO QAM 08/02/19 11/04/21 History atorvastatin 20 mg tablet 20 mg PO QDD 10/31/21 11/04/21 History glimepiride 2 mg tablet 2 mg PO QDD 10/31/21 11/04/21 History oxycodone 5 mg tablet 5 mg PO Q4H PRN #15 tab 10/31/21 11/04/21 Rx tamsulosin 0.4 mg capsule (Flomax) 0.4 mg PO QDD 11/04/21 11/04/21 History Past Med/Surg History Medical History Abscess of right breast Anemia Diabetes Dyslipidemia Hypertension Kidney stones Obesity Surgical History History of removal of calculus of renal pelvis through percutaneous nephrostomy Social History Smoking Status: Never smoker Second Hand Exposure: No; Do You Dip or Chew Tobacco: No; Hx Alcohol Use: No Hx Substance Use: No Preferred Language: Gambian [employer] Required: No Beliefs That Will Affect Care: None marital status: Current Living Situation: Spouse Current Living Situation Comment: Lives with current occupational status: unemployed Other Information That Helps Us Care for You: No Feels Safe at Home: Yes Safety Concerns: Feels Safe At This Time Assistive Devices: None Review of Systems Review of Systems: Constitutional: Reports fevers/chills, as well as myalgias; no weakness, fatigue, anorexia, night sweats Eyes: No diplopia, no worsening or blurred vision ENT: normal hearing, no trouble swallowing Respiratory: No cough, sputum, dyspnea at rest or on exertion Cardiovascular: No chest pain, tightness or palpitations Abdomen: Reports diarrhea without hematochezia or melena; no pain, nausea, vomiting : Reports dysuria; no hematuria, increased urgency/frequency, urinary retention Musculoskeletal: No joint pain, calf pain, swelling Neurologic: No weakness, numbness/tingling, or balance problems Psychiatric: No anxiety or depression Skin: No rash or itch Physical Exam Physical Exam: General: awake, alert, no apparent distress Head: Normocephalic, atraumatic ENT: PERRL, EOMI, no pharyngeal exudate, mucous membranes moist Chest: Clear to auscultation, on room air, no adventitious breath sounds Cardiac: Regular rate and rhythm, no murmur, no JVD, normal peripheral pulses, good capillary refill Abdominal: NABS x 4 quadrants, soft, nontender to palpation, no rebound, guarding or tenderness Extremities: Normal inspection, no peripheral edema or erythema, calfs nontender to palpation Psych: Normal mood and affect Neuro: AAO x 3, strength intact bilaterally and rated 5/5, no motor deficits, speech is clear, no peripheral sensory deficits Skin: no rash or erythema Results & Data Results & Data ([facility]) Vital Signs (Past 12 Hours) Vital Signs Temp Pulse Pulse Resp BP BP Pulse Ox 11/04/21 20:15 80 16 117/71 98 11/04/21 18:52 103 H 20 136/90 98 11/04/21 18:46 98 11/04/21 18:17 37.3 C 119 H 18 171/89 H 95 Laboratory Results Abnormal lab results 11/04/21 11/04/21 11/04/21 Range/Units 18:38 18:38 19:57 WBC 11.56 H (4.8-10.8) K/uL RBC 3.79 L (4.2-5.4) M/uL Hgb 9.3 L (12.0-16.0) g/dL Hct 28.4 L (37-47) % MCV 74.9 L (80-100) fL MCH 24.5 L (25-34) pg RDW Coeff of Nadeem 16.0 H (11.5-14.5) % MPV 11.6 H (7.4-10.4) fL Neut # (Auto) 8.43 H (1.4-6.5) K/uL [place] # (Auto) 1.26 H (0.11-0.59) K/uL Immature Gran # (Auto) 0.07 H (0.00-0.02) K/uL Sodium 132 L (136-145) mmol/L Potassium 3.0 L (3.5-5.1) mmol/L BUN/Creatinine Ratio 8.0 L (10-20) Glucose 215 H (70-99(Fasting)) mg/dl Total Bilirubin 1.3 H (0.2-1.0) mg/dl Alkaline Phosphatase 151 H (34-104) U/L Urine Protein 1+ H (Negative) Urine Glucose (UA) 1+ H (Negative) Urine Blood 2+ H (Negative) Ur Leukocyte Esterase Trace H (Negative) Urine WBC (Auto) 10-30 H (0-5) /hpf Urine RBC (Auto) 5-10 H (0-4) /hpf U Epithel Cells (Auto) 20-30 H (0-5) /lpf Diagnostic Findings Abdomen/Pelvis CT 11/04/21 19:13 CT OF THE ABDOMEN AND PELVIS WITH CONTRAST CLINICAL HISTORY: Left flank pain, obstructing ureteral stone COMPARISON STUDY: CT of the abdomen and pelvis and KUB October 31, 2021. TECHNIQUE: Following IV administration of 94 mL of Optiray, axial images of the abdomen and pelvis were obtained from the lung bases to the proximal femurs. Images were reviewed in the axial, sagittal, and coronal planes. IV contrast was administered without complication. Automated exposure control was utilized for the study. A dose lowering technique was utilized adhering to the principles of ALARA. CT DOSE: 422.19 mGy.cm FINDINGS: Lung bases are unremarkable. No pneumatosis, free air or portal venous gas is present. Liver, spleen, adrenal glands, right kidney and pancreas are unremarkable. There is no biliary or pancreatic ductal dilatation. Gallbladder is contracted. Severe left hydronephrosis has slightly progressed. There has been minimal distal migration of a 1 x 0.7 cm left ureteropelvic junction calculus since prior CT. Prominent adjacent lymph nodes are probably reactive. No additional urinary calculi are present. Left nephrogram is delayed. Urothelial thickening is noted. There is no evidence for a bowel obstruction. The appendix is normal. There is trace fluid within the pelvis. There are multiple suspected fibroids, including a 2.8 cm anterior fundal fibroid. There is a suspected large exophytic fibroid which extends into the right lower quadrant. These findings are suboptimally assessed by CT but are similar to earlier CT of October 16, 2017. IMPRESSION: 1. 1 x 0.7 cm left ureteropelvic junction calculus which results in severe left hydronephrosis which has slightly progressed. Delayed left nephrogram. Urothelial thickening and mild adjacent stranding is likely related to the obstruction. A superimposed infectious process is considered less likely however cannot be excluded by CT. 2. Multiple suspected fibroids, suboptimally assessed by CT. ACT 112: Negative or not required by law. Electronically signed by: Edy Javed M.D. 11/04/2021 8:18 PM Code Status & VTE Plan Code Status Full code. Supervising Physician Co-Signing Physician Notes Attending addendum: I have physically seen this patient, have supervised the JAMSHID's activities, and agree with the H&P unless as otherwise noted. Assessment and Plan: Left UPJ stone/severe left hydroureteronephrosis- N.p.o. after midnight Status post 1 L normal saline ED Continue IV fluids at 80 mils per hour Follow urine culture sensitivity Ceftriaxone 2 g IV daily Pain control with Tylenol, Toradol and morphine as noted Zofran 4 mg IV every 6 hours as needed Consult urology Hypokalemia- supplementation and recheck in a.m. Hypertension- Continue lisinopril with hold parameters Remaining orders and notations as noted PG Care Time/CCT Total # of Minutes Spent Total Time Spent with Patient: Total time spent is greater than 50% in coordination of care (as documented) at patient's floor/unit and/or counseling patient: Coding Level of Care Code 50728 Initial Inpt Care Lvl 3 Diagnoses Calculus of proximal left ureter N20.1 Hydronephrosis of left kidney N13.30 Hypertension I10 Diabetes E11.9 Hyperlipidemia E78.5 Hypokalemia E87.6
[2021-11-04] MEDS ORDERED: POTASSIUM CHLORIDE CRTAB 20 MEQ TABCR PO STA (21:13)
[2021-11-04] MEDS ORDERED: POLYETHYLENE (MIRALAX) 17 GM PACK PO PRN (22:04)
[2021-11-04] MEDS ORDERED: KETOROLAC 30 MG/ML VIAL IV PRN (22:04)
[2021-11-04] MEDS ORDERED: GLUCOSE 40% GEL 15 GM TUBE PO PRN (22:04)
[2021-11-04] MEDS ORDERED: MoRPHine SULFATE 4 MG/ML 1 ML CARP\\VIAL IV PRN (22:04)
[2021-11-04] MEDS ORDERED: MoRPHine SULFATE 2 MG/ML CARP IV PRN (22:04)
[2021-11-04] MEDS ORDERED: GLUCAGON FOR INJ 1 MG VIAL SQ PRN (22:04)
[2021-11-04] MEDS ORDERED: CARBOHYDRATES FOR HYPOGLYCEMIA PO PRN (22:04)
[2021-11-04] MEDS ORDERED: ONDANSETRON INJ 2 MG/ML 2 ML VIAL IV PRN (22:04)
[2021-11-04] MEDS ORDERED: ACETAMINOPHEN 325 MG TAB PO PRN (22:04)
[2021-11-04] MEDS ORDERED: DEXTROSE 50% 50 ML SYRINGE IV PRN (22:04)
[2021-11-04] MEDS ORDERED: GLUCOSE 10 TABS/TUBE PO PRN (22:04)
[2021-11-04] MEDS ORDERED: Nursing to Pharmacy Communication SCH (22:15)
--- NOTE | 2021-11-04 22:29 | Urology Consultation ---
Date of Consultation November 04, 2021 Assessment & Plan (1) Calculus of proximal left ureter: Due to the patient's clinical presentation and findings on imaging she has been admitted on the hospitalist service. We recommend proceeding as follows: Provide analgesics Provide antiemetics Provide Flomax for expulsive therapy Provide hydration measures with IV fluid Strain all urine and save any kidney stones for analysis Maintain patient on antibiotics. She has been placed on Rocephin. Urine and blood cultures have been sent and these cultures will be followed with at which time her antibiotics can be tailored based on the results. Make the patient n.p.o. after midnight. The patient be reassessed in the morning to determine if cystoscopy is needed At the present time the patient has normal renal function, is afebrile, and is nontoxic-appearing. He also has normal renal function therefore not feel that emergent urologic procedure is required at this time. Additional recommendations be forthcoming based on her clinical course as it unfolds. History of Present Illness Reason for Consultation: Nephrolithiasis Attending Physician: Demian Resendiz MD History of Present Illness This is a 51-year-old female who presented to [facility] secondary to a kidney stone. The patient notes that she has been having left- sided flank pain for approximately 4 days. The patient notes that her flank pain does radiate to the front of her abdomen somewhat. She has had nausea wi thout vomiting. She reports a subjective fever but admits she did not take her temperature and she has reported intermittent chills. She denies any dysuria or hematuria. She was seen in the emergency department on 10/31/2021. At that time her white blood cell count was noted to be 13.0. Her renal function was noted to be normal at that time. She did undergo a CT scan of the abdomen pelvis at t hat time that showed a 7 mm left kidney stone at the ureteropelvic junction resulting in moderate left-sided hydronephrosis. During this ER visit the patient was felt stable for discharge home and she was sent home with a prescription for analgesics and instructed to follow-up with [facility] physician group urology. As her symptoms did not completely kylah she represented to the emergency department today. She notes that her most recent oral intake was at approximately 5:30 PM this evening. It is nowhere the mention that the patient does have a history of nephrolithiasis in the past. In 2018 the patient did have a left-sided kidney stone that required a cystoscopy with left ureteral stent placement here at [facility]. The patient notes that she ultimately had to be transferred to [facility] for definitive care of her kidney stone but she could not provide any further details. In the emergency department the patient had labs and imaging which I i ndependently reviewed. A CT scan of the abdomen pelvis showed the patient had a 1 by 0.7 cm left ureteropelvic junction kidney stone which was resulting in left hydronephrosis. The CT scan findings appear to be slightly progressive compared to her a forementioned emergency department visit. Labs include a CBC her white blood cell count was elevated 11.5. Her hemoglobin and hematocrit were 9.3 and 28.4. Platelet count was noted to be normal. Chemistry profile showed sodium was 132 with a potassium of 3.0. BUN and creatinine were both normal. Lactic acid was not elevated. A COVID test was noted to be negative. Urinalysis did show urine was negative for nitrite and it did show trace leukocyte esterase. There were 10-30 white blood cells per high-power field. There is no bacteria o n the specimen. A test was noted to be negative. At the time of my interview the patient was resting comfortably in bed and she was in no distress. Allergies Allergy/AdvReac Type Severity Reaction Status Date / Time No Known Allergies Allergy Verified 11/04/21 20:25 Home Medications Medication Instructions Recorded Confirmed Type lisinopril 10 mg tablet 10 mg PO QAM 08/02/19 11/04/21 History atorvastatin 20 mg tablet 20 mg PO QDD 10/31/21 11/04/21 History glimepiride 2 mg tablet 2 mg PO QDD 10/31/21 11/04/21 History oxycodone 5 mg tablet 5 mg PO Q4H PRN #15 tab 10/31/21 11/04/21 Rx tamsulosin 0.4 mg capsule (Flomax) 0.4 mg PO QDD 11/04/21 11/04/21 History Patient History Medical History Abscess of right breast Kidney stones Surgical History History of removal of calculus of renal pelvis through percutaneous nephrostomy Social History Smoking Status: Never smoker Second Hand Exposure: No; Do You Dip or Chew Tobacco: No; Hx Alcohol Use: No Hx Substance Use: No Preferred Language: Bermudian Crts Required: No Beliefs That Will Affect Care: None marital status: Current Living Situation: Spouse Current Living Situation Comment: Lives with current occupational status: unemployed Other Information That Helps Us Care for You: No Feels Safe at Home: Yes Safety Concerns: Feels Safe At This Time Assistive Devices: Glasses Review of Systems Constitutional: + fever and + chills Eyes: no eye pain Ear, Nose, Mouth, Throat: no ear pain Respiratory: no cough and no dyspnea Cardiovascular: no chest pain Gastrointestinal: + nausea; no abdominal pain and no vomiting Genitourinary: as per Subjective / HPI and + flank pain (Left-sided); no dysuria Musculoskeletal: + back pain (Left-sided flank pain) Integumentary: no rash Neurologic: no localized weakness Physical Exam Constitutional: well developed and well nourished; no acute distress Eyes: no conjunctival abnormality ENMT: Ears: no hearing impairment and no external ear abnormality Mouth: no oropharynx abnormality Neck: trachea midline Respiratory: normal respiratory effort, lungs clear to auscultation Cardiovascular: Rate/Rhythm: regular rate and regular rhythm Gastrointestinal (Abdomen): Soft, nontender, nondistended. There is no pain with palpation Musculoskeletal: No calf tenderness Skin: no rashes Neurologic: moves all extremities Psychiatric: A+Ox3, euthymic affect Genitourinary: + CVA tenderness (Left-sided, with percussion) Results & Data ([facility]) Vital Signs (Past 12 Hours) Vital Signs Temp Pulse Pulse Resp BP BP Pulse Ox 11/04/21 22:00 36.7 C 84 18 116/69 98 11/04/21 20:15 80 16 117/71 98 11/04/21 18:52 103 H 20 136/90 98 11/04/21 18:46 98 11/04/21 18:17 37.3 C 119 H 18 171/89 H 95 PG Care Time/CCT Total # of Minutes Spent Total Time Spent with Patient: Total time spent is greater than 50% in coordination of care (as documented) at patient's floor/unit and/or counseling patient: Coding Level of Care Code 15888 Inpt Consult Level 5 Diagnoses Calculus of proximal left ureter N20.1
[2021-11-04] MEDS: LACTATED RINGER'S 1,000 ML IV SCH (22:35)
[2021-11-05] MEDS ORDERED: MELATONIN 3 MG TAB PO PRN (00:10)
[2021-11-05] MEDS: INSULIN ASPART PER UNIT SC SCH ×5 (00:22→20:43)
[2021-11-05] MEDS: LACTATED RINGER'S 1,000 ML IV SCH ×3 (05:44→21:50)
[2021-11-05 07:46] LABS: Basophils # (auto) 0.01 K/uL (0-0.2); Basophils % (auto) 0.1 %; Eosinophils # (auto) 0.04 K/uL (0-0.5); Eosinophils % (auto) 0.4 %; Hematocrit (blood only) 25.3 % (37-47); Hemoglobin 8.2 g/dL (12.0-16.0); Immature Granulocytes # (auto) 0.08 K/uL (0.00-0.02); Immature Granulocytes % (auto) 0.7 %; Lymphocytes # (auto) 0.86 K/uL (1.2-3.4); Lymphocytes % (auto) 7.6 %; Mean Corpuscular Hemoglobin 24.3 pg (25-34); Mean Corpuscular Hgb Conc 32.4 g/dL (32-36); Mean Corpuscular Volume 75.1 fL (80-100); Mean Platelet Volume 10.3 fL (7.4-10.4); Monocytes # (auto) 1.28 K/uL (0.11-0.59); Monocytes % (auto) 11.3 %; Neutrophils # (auto) 9.08 K/uL (1.4-6.5); Neutrophils % (auto) 79.9 %; Platelet Count 311 K/uL (130-400); RDW Coefficient of Variation 16.2 % (11.5-14.5); RDW Standard Deviation 44.2 fL (36.4-46.3); Red Blood Count 3.37 M/uL (4.2-5.4); White Blood Count 11.35 K/uL (4.8-10.8)
--- NOTE | 2021-11-05 07:48 | Urology Progress Note ---
Date of Service November 05, 2021 Assessment & Plan (1) Calculus of proximal left ureter: (2) Hydronephrosis of left kidney: Plan: 51yo F with a recently diagnosed 7mm left UPJ stone who returned to the ED yesterday evening with persistent left flank pain and new development of subjective fever, chills, and body aches. CT of the abdomen pelvis was performed and demonstrated persistence of the patient's UPJ stone without change in position measuring at 1 cm x 0.7 cm with increased severe hydronephrosis. - Afebrile, hemodynamically stable. - Labs reviewed- Wbc 11.35, Creatinine 0.74. - Urine and blood cultures pending, on IV Ceftriaxone. Plan- - Plan of care reviewed with Dr. Reyes, on-call urologist. - Given her intractable left flank pain in the context of an obstructing left UPJ stone, will proceed with OR for cystoscopy, left retrograde pyelogram, left ureteral stent placement. - Risks and benefits to be reviewed with patient by Dr Reyes. OR notified. Covid test negative. Covered with scheduled IV Ceftriaxone. - Keep NPO. - Continue supportive care, antibiotic therapy, and pain management. - Will continue to follow Admission and Anticipated Discharge Date Admission Date: November 04, 2021 Subjective Pt examined at bedside this AM. Awake, resting in bed on arrival. No acute distress. Still with intermittent left flank pain. Denies fever or chills. No nausea or vomiting this morning. Has been NPO. Voiding without issue. Denies hematuria/dysuria. Review of Systems Constitutional: as per Subjective / HPI Gastrointestinal: as per Subjective / HPI Genitourinary: as per Subjective / HPI Physical Exam Constitutional: no acute distress Respiratory: no respiratory distress and no labored breathing Gastrointestinal (Abdomen): Inspection/Auscultation: abdomen normal to inspection Skin: No visible rashes or lesions to exposed skin areas Neurologic: awake Psychiatric: Orientation: alert, oriented x 3 and cooperative Genitourinary: Left flank tenderness with palpation Results & Data ([facility]) Vital Signs (Past 12 Hours) Vital Signs Temp Pulse Resp BP Pulse Ox 11/04/21 22:00 36.7 C 84 18 116/69 98 11/04/21 20:15 80 16 117/71 98 PG Care Time/CCT Total # of Minutes Spent Total Time Spent with Patient: Total time spent is greater than 50% in coordination of care (as documented) at patient's floor/unit and/or counseling patient: Coding Level of Care Code 65312 Subseq Hosp Care Lvl 2 Diagnoses Calculus of proximal left ureter N20.1 Hydronephrosis of left kidney N13.30
[2021-11-05 08:04] LABS: Albumin Globulin Ratio 0.9 (0.9-2); Albumin Level 2.9 gm/dl (3.4-5.0); BUN Creatinine Ratio 9.5 (10-20); Bilirubin,Total 1.1 mg/dl (0.2-1.0); Calcium 8.1 mg/dl (8.5-10.1); Creatinine Clr Calc Pharmacy 91.6 ml/min; Est GFR (African American) 110.3 ml/min; Est GFR (Non-African American) 95.1 ml/min; Globulin 3.2 gm/dl (2.5-4.0); Potassium 3.3 mmol/L (3.5-5.1); Total Protein 6.1 gm/dl (6.0-8.3)
[2021-11-05] MEDS: ATORVASTATIN 20 MG TAB PO SCH (08:54)
[2021-11-05] MEDS: TAMSULOSIN HCL 0.4 MG CAP PO SCH (08:54)
[2021-11-05] MEDS: lisinopril 10 MG TAB PO SCH (08:54)
[2021-11-05] MEDS ORDERED: POTASSIUM CHLORIDE CRTAB 20 MEQ TABCR PO ONE (09:00)
--- NOTE | 2021-11-05 12:44 | Anesthesiology Consultation ---
Date of Service November 05, 2021 Assessment & Plan (1) Encounter for pre-operative examination: Chart Review Chart Review: Acceptable Risk for Surgery (necessary surgery) and Patient NOT seen in Pre Admission Testing Consults Requested none History Surgery Operation Date: 11/05/21 09:40 Proposed Procedures p Cystoscopy Left Retrograde Pyelogram with Stent Placement - Farhan Reyes MD Height/Weight Height: 5 ft 3 in Weight: 79.2 kg Allergies Allergy/AdvReac Type Severity Reaction Status Date / Time No Known Allergies Allergy Verified 11/04/21 20:25 Medications Home Medications Medication Instructions Recorded Confirmed Last Taken lisinopril 10 mg tablet 10 mg PO QAM 08/02/19 11/04/21 11/04/21 atorvastatin 20 mg tablet 20 mg PO QDD 10/31/21 11/04/21 11/03/21 glimepiride 2 mg tablet 2 mg PO QDD 10/31/21 11/04/21 11/03/21 oxycodone 5 mg tablet 5 mg PO Q4H PRN #15 tab 10/31/21 11/04/21 Unknown tamsulosin 0.4 mg capsule (Flomax) 0.4 mg PO QDD 11/04/21 11/04/21 11/03/21 Active Medications Generic Name Dose Route Start Last Admin Trade Name Freq PRN Reason Stop Dose Admin Atorvastatin Calcium 20 mg 11/05/21 09:00 11/05/21 08:54 Atorvastatin 20 Mg Tab PO 12/05/21 08:59 20 mg QAM ERIN Administration Lactated Ringer's 1,000 mls @ 125 mls/hr 11/04/21 22:04 11/05/21 05:44 Lr IV 12/04/21 22:03 125 mls/hr .Q8H ERIN Administration Insulin Aspart 0 units 11/05/21 00:00 11/05/21 12:17 Insulin Aspart Per Unit SC 12/05/21 00:00 1 units Q6 ERIN Administration Lisinopril 10 mg 11/05/21 09:00 11/05/21 08:54 Lisinopril 10 Mg Tab PO 12/05/21 08:59 10 mg QAM ERIN Administration Melatonin 3 mg 11/05/21 00:10 11/05/21 00:23 Melatonin 3 Mg Tab PO 12/05/21 00:09 3 mg HS PRN Administration Sleep Tamsulosin HCl 0.4 mg 11/05/21 09:00 11/05/21 08:54 Tamsulosin Hcl 0.4 Mg Cap PO 12/05/21 08:59 0.4 mg DAILY ERIN Administration NPO Date Last Intake of Fluids: 11/05/21 Last Intake of Fluids Comment: sips with am meds Date Last Intake of Solids: 11/04/21 Past Medical History Medical History Abscess of right breast Anemia Diabetes Dyslipidemia Hypertension Kidney stones Obesity Past Surgical History Surgical History History of removal of calculus of renal pelvis through percutaneous nephrostomy Social History Smoking Status: Never smoker Do You Dip or Chew Tobacco: No Hx Alcohol Use: No Hx Substance Use: No Physical Exam Vital Signs Last Vital Signs Temp 37.9 C H 11/05/21 08:37 Pulse 92 H 11/05/21 08:37 Resp 16 11/05/21 08:37 BP 134/84 11/05/21 08:37 Pulse Ox 93 11/05/21 08:37 Testing Laboratory Results 11/05/21 07:17 11/05/21 07:17 Urine Color Yellow 11/04/21 19:57 Urine Appearance Clear (Clear) 11/04/21 19:57 Urine pH 6.5 (4.5-7.5) 11/04/21 19:57 Ur Specific [place] 1.016 (1.000-1.030) 11/04/21 19:57 Urine Protein 1+ (Negative) H 11/04/21 19:57 Urine Glucose (UA) 1+ (Negative) H 11/04/21 19:57 Urine Ketones Negative (Negative) 11/04/21 19:57 Urine Nitrite Negative (Negative) 11/04/21 19:57 Ur Leukocyte Esterase Trace (Negative) H 11/04/21 19:57 Urine WBC (Auto) 10-30 /hpf (0-5) H 11/04/21 19:57 Urine RBC (Auto) 5-10 /hpf (0-4) H 11/04/21 19:57 U Hyaline Cast (Auto) 0 /lpf (0-5) 11/04/21 19:57 U Epithel Cells (Auto) 20-30 /lpf (0-5) H 11/04/21 19:57 Urine Bacteria (Auto) Negative (Negative) 11/04/21 19:57 11/04/21 19:57 Urine Culture - Final Urine,Clean Catch More than three types of organisms present, all moderate counts mixed probable skin maxi. No further identifications or sensitivities to follow. 11/05/21 11/05/21 12:12 06:32 POC Glucose 142 H 162 H
[2021-11-05] MEDS ORDERED: ONDANSETRON INJ 2 MG/ML 2 ML VIAL IV PRN (13:54)
[2021-11-05] MEDS ORDERED: ePHEDrine sulfate 50 MG/ML AMP IV PRN (13:54)
[2021-11-05] MEDS ORDERED: ATROPINE SULFATE 0.1 MG/ML 10ML SYR IV PRN (13:54)
[2021-11-05] MEDS ORDERED: LABETALOL HCL IV 5 MG/ML 20ML IV PRN (13:54)
[2021-11-05] MEDS ORDERED: PHENYLEPHRINE 100MCG/ML 5ML SYR IV PRN (13:54)
[2021-11-05] MEDS ORDERED: HYDROmorphone INJ 1 MG/ML SYRINGE IV PRN (13:54)
[2021-11-05] MEDS ORDERED: fentaNYL citrate 100 MCG/2 ML VIAL IV PRN (13:54)
[2021-11-05] MEDS ORDERED: PROPOFOL IV EMULSION 10 MG/ML 20 ML VIAL IV ONE (14:31)
[2021-11-05] MEDS ORDERED: LIDOCAINE 2% 2 ML VIAL/AMP(20MG/ML) INFIL ONE (14:31)
[2021-11-05] MEDS ORDERED: fentaNYL citrate 100 MCG/2 ML VIAL ONE (14:32)
[2021-11-05] MEDS ORDERED: MIDAZOLAM HCL 1 MG/ML 2ML VIAL ONE (14:32)
--- NOTE | 2021-11-05 15:49 | Operative Report ---
PG Post Operative Report Pre & Post Diagnosis Operation Date: 11/05/21 09:40 Pre: obstructing left ureteral calculus Post: Obstructing left ureteral calculus I identified the patient and participated in the time-out.: Yes Procedure Operation Date: 11/05/21 09:40 Procedure: cystoscopy, left ureteral stent placement Surgeon Farhan Reyes MD Campus Monitor none Estimated Blood Loss 0 Findings Consistent with Post-Op Diagnosis Specimens none Description of Procedure The patient was identified in the preoperative holding area, appropriate informed consents were reviewed and completed and the patient was transferred to the operative suite. Upon arrival, appropriate antibiotics and anesthesia were administered and the patient was placed in dorsal lithotomy position and prepped and draped in sterile fashion. To begin the case to pass a 22 Slovak cystoscope with 30 degree lens. Inspection revealed a healthy-appearing bladder. Of note, there was pus passing from the left UO. Following my inspection I turned my attention to the left UO and passed a sensor wire. There was an opacity at the level of the UPJ consistent with the stone. After gentle manipulation I was able to advance the wire beyond this and into the kidney. There is no more of a discharge of pus at that point. I elected not to place to perform a retrograde pyelogram given the maia pus. A 6 Slovak by 24 cm stent was placed over the wire with good curl in the kidney as well as the bladder. There was good drainage through and around the stent. The case was concluded and she was reversed of anesthesia and taken to the recovery room in stable condition. There were no complications. I attest to the content of the Intraoperative Record and any orders documented therein. Any exceptions are noted below.
--- NOTE | 2021-11-05 15:58 | Fluoroscopy Report ---
FL KUB CLINICAL HISTORY: STENT PLACEMENT COMPARISON STUDY: 10/16/2017 FLUOROSCOPY TIME: 6 seconds. FLUOROSCOPIC IMAGES: 2 FINDINGS: Catheter is seen within the left ureter with interval placement of a double-J ureteral sten t on the left. IMPRESSION: Status post placement of double-J ureteral stent on the left. ACT 112: Negative or not required by law. Electronically signed by: Levi Carreon M.D. 11/05/2021 3:57 PM
--- NOTE | 2021-11-05 16:03 | Anesthesiology Progress Note ---
Date of Service November 05, 2021 Anesthesia Post Procedure Vital Signs Vital Signs: Temp Pulse Pulse Pulse Resp BP BP 11/05/21 16:00 88 24 131/74 11/05/21 15:52 36.8 C 94 H 28 H 124/79 11/05/21 14:26 37.1 C 88 18 149/80 H 11/05/21 14:12 37.5 C 92 H 16 143/77 H 11/05/21 08:37 37.9 C H 92 H 16 134/84 11/04/21 22:00 36.7 C 84 18 116/69 11/04/21 20:15 80 16 117/71 11/04/21 18:52 103 H 20 136/90 11/04/21 18:46 11/04/21 18:17 37.3 C 119 H 18 171/89 H Pulse Ox 11/05/21 16:00 93 11/05/21 15:52 98 11/05/21 14:26 97 11/05/21 14:12 96 11/05/21 08:37 93 11/04/21 22:00 98 11/04/21 20:15 98 11/04/21 18:52 98 11/04/21 18:46 98 11/04/21 18:17 95 Transfer of Care Handoff Completed per policy Notes Mental Status: alert / awake / arousable Patient Amnestic to Procedure: Yes Nausea / Vomiting: adequately controlled Pain: adequately controlled Airway Patency, RR, SpO2: stable & adequate BP & HR: stable & adequate Hydration State: stable & adequate Anesthetic Complications: no major complications apparent and Pt Satisfied with anesthetic care
[2021-11-05] MEDS ORDERED: oxyCODONE HCL IR 5 MG TAB (IMMEDIATE RELEASE) PO PRN (16:30)
[2021-11-05] MEDS: GLIMEPIRIDE 2 MG TAB PO SCH (17:50)
[2021-11-05] MEDS ORDERED: Nursing to Pharmacy Communication SCH (18:15)
[2021-11-05] MEDS ORDERED: SODIUM CHLORIDE 0.65% NA SOLN 45 ML (OCEAN) ONE (20:42)
[2021-11-05] MEDS: cefTRIAXone SODIUM 1,000 MG in DEXTROSE 5% 50 ML IV SCH (20:55)
--- NOTE | 2021-11-05 21:11 | Hospitalist Progress Note ---
Date of Service November 05, 2021 Assessment & Plan (1) Calculus of proximal left ureter: Plan: - Pain control with Tylenol, Toradol, morphine. Zofran for nausea/vomiting. Any Flomax. - IVF, ceftriaxone 2 mg daily. - Urology consulted, appreciate their recommendations. - Patient remains NPO for intervention for later today. continue above antibiotics (2) Hydronephrosis of left kidney: (3) Hypokalemia: Plan: - 3.0, replete and recheck in AM. (4) Hypertension: Plan: - Continue lisinopril 10 mg daily (5) Diabetes: Plan: - Hold glimepiride, switch to SSI. - Accu-Cheks ACHS. - CC diet. - Most recent HbA1c in our system from 2017, however patient reports she just had outpatient labs done in September and this was 6.7, therefore will defer for now. (6) Hyperlipidemia: Plan: - Continue atorvastatin 20 mg daily. Plan: - Admit to [facility]. - SCDs for DVT PPx. - Full code. Admission and Anticipated Discharge Date Admission Date: November 04, 2021 Subjective Patient reports decreased pain. Patient has no new symptoms. Review of Systems Review of Systems: All systems reviewed & are unremarkable except as noted in HPI & below Physical Exam Physical Exam: General: awake, alert, no apparent distress Head: Normocephalic, atraumatic ENT: PERRL, EOMI, no pharyngeal exudate, mucous membranes moist Chest: Clear to auscultation, on room air, no adventitious breath sounds Cardiac: Regular rate and rhythm, no murmur, no JVD, normal peripheral pulses, good capillary refill Abdominal: NABS x 4 quadrants, soft, nontender to palpation, no rebound, guarding or tenderness Extremities: Normal inspection, no peripheral edema or erythema, calfs nontender to palpation Psych: Normal mood and affect Neuro: AAO x 3, strength intact bilaterally and rated 5/5, no motor deficits, speech is clear, no peripheral sensory deficits Skin: no rash or erythema Results & Data Results & Data ([facility]) Vital Signs (Past 12 Hours) Vital Signs Temp Pulse Pulse Resp BP Pulse Ox 11/05/21 20:19 37.0 C 88 16 126/79 96 11/05/21 19:26 38.0 C H 90 16 145/80 H 98 11/05/21 18:30 38.0 C H 94 H 16 145/85 H 97 11/05/21 17:30 38.2 C H 88 16 146/84 H 96 11/05/21 17:12 37.6 C H 85 16 152/85 H 96 11/05/21 16:36 38.0 C H 92 H 20 124/79 95 11/05/21 16:20 89 22 135/78 94 11/05/21 16:10 37.5 C 88 22 136/81 94 11/05/21 16:00 88 24 131/74 93 11/05/21 15:52 36.8 C 94 H 28 H 124/79 98 11/05/21 14:26 37.1 C 88 18 149/80 H 97 11/05/21 14:12 37.5 C 92 H 16 143/77 H 96 PG Care Time/CCT Total # of Minutes Spent Total Time Spent with Patient: Total time spent is greater than 50% in coordination of care (as documented) at patient's floor/unit and/or counseling patient: Coding Level of Care Code 23786 Subseq Hosp Care Lvl 2 Diagnoses Calculus of proximal left ureter N20.1 Hydronephrosis of left kidney N13.30 Hypokalemia E87.6 Hypertension I10 Diabetes E11.9 Hyperlipidemia E78.5
[2021-11-05] MEDS: MELATONIN 3 MG TAB PO PRN (21:52)
[2021-11-06 05:59] LABS: Hematocrit (blood only) 24.8 % (37-47); Hemoglobin 7.9 g/dL (12.0-16.0); Mean Corpuscular Hemoglobin 24.4 pg (25-34); Mean Corpuscular Hgb Conc 31.9 g/dL (32-36); Mean Corpuscular Volume 76.5 fL (80-100); Mean Platelet Volume 10.9 fL (7.4-10.4); Platelet Count 358 K/uL (130-400); RDW Coefficient of Variation 16.1 % (11.5-14.5); RDW Standard Deviation 44.8 fL (36.4-46.3); Red Blood Count 3.24 M/uL (4.2-5.4); White Blood Count 10.46 K/uL (4.8-10.8)
[2021-11-06] MEDS: LACTATED RINGER'S 1,000 ML IV SCH ×2 (06:03→14:16)
[2021-11-06 06:32] LABS: BUN Creatinine Ratio 9.9 (10-20); Calcium 8.3 mg/dl (8.5-10.1); Creatinine Clr Calc Pharmacy 95.5 ml/min; Est GFR (African American) 115.9 ml/min; Potassium 3.6 mmol/L (3.5-5.1)
[2021-11-06] MEDS: TAMSULOSIN HCL 0.4 MG CAP PO SCH (09:13)
[2021-11-06] MEDS: ATORVASTATIN 20 MG TAB PO SCH (09:13)
[2021-11-06] MEDS: lisinopril 10 MG TAB PO SCH (09:13)
[2021-11-06] MEDS: INSULIN ASPART PER UNIT SC SCH ×4 (09:16→21:30)
--- NOTE | 2021-11-06 10:31 | Urology Progress Note ---
Date of Service November 06, 2021 Assessment & Plan (1) Calculus of proximal left ureter: (2) Hydronephrosis of left kidney: Plan: 51yo F with a recently diagnosed 7mm left UPJ stone who returned to the ED yesterday evening with persistent left flank pain and new development of subjective fever, chills, and body aches. CT of the abdomen pelvis was performed and demonstrated persistence of the patient's UPJ stone without change in position measuring at 1 cm x 0.7 cm with increased severe hydronephrosis. - POD #1 s/p cystoscopy, left ureteral stent placement. - Subjectively feeling good, tolerating the ureteral stent with minimal bother. - Afebrile this morning - TMAX 38.2 yesterday evening. - Labs reviewed- Wbc and creatinine normal. - Urine culture final with mod counts mixed probable skin maxi; Blood cultures prelim no growth x 24 hours. - Continues on IV Ceftriaxone. - Okay to d/c from perspective when medically stable. - Recommend d/c with course of PO antibiotics, Tamsulosin, prn Pyridium and prn pain medication for stent management - Will arrange outpatient follow-up with our service to arrange definitive stone treatment. - Continue supportive care, antibiotic therapy, and prn pain management. - Thank you for allowing us to participate in the acute care of Ms. Walker. Please reconsult us with additional questions, concerns or changes in patient status. Admission and Anticipated Discharge Date Admission Date: November 04, 2021 Supervising Physician Co-Signing Physician Notes Discussed patient with JAMSHID. Agree with plan. Although cultures currently negative, would treat patient as if they had infection based on intraoperative findings. Recommend one week of oral antibiotics on discharge, bactrim or ciprofloxacin is reasonable. Urology will set up outpatient follow up for stone treatment. Subjective POD #1 s/p cysto, stent Pt examined at bedside this AM. Awake, resting in bed on arrival. Appears comfortable, no acute distress. Denies any pain or discomfort at present. Tolerating the ureteral stent well. No fevers overnight, but was febrile yesterday evening at 38.2 Tolerating diet, no nausea or vomiting. Voiding without issue. Denies hematuria/dysuria. Review of Systems Constitutional: as per Subjective / HPI Gastrointestinal: as per Subjective / HPI Genitourinary: as per Subjective / HPI Physical Exam Constitutional: cooperative and comfortable; no acute distress Respiratory: no respiratory distress and no labored breathing Gastrointestinal (Abdomen): Inspection/Auscultation: abdomen normal to inspection Skin: No visible rashes or lesions to exposed skin areas Neurologic: awake Psychiatric: Orientation: alert and oriented x 3 Results & Data ([facility]) Vital Signs (Past 12 Hours) Vital Signs Temp Pulse Resp BP Pulse Ox 11/06/21 07:27 37.2 C 78 18 144/83 H 97 11/06/21 03:57 36.6 C 80 16 123/73 96 11/06/21 00:07 37.0 C 85 16 125/72 96 PG Care Time/CCT Total # of Minutes Spent Total Time Spent with Patient: Total time spent is greater than 50% in coordination of care (as documented) at patient's floor/unit and/or counseling patient: Coding Level of Care Code 54429 Subseq Hosp Care Lvl 2 Diagnoses Calculus of proximal left ureter N20.1 Hydronephrosis of left kidney N13.30
[2021-11-06] MEDS: GLIMEPIRIDE 2 MG TAB PO SCH (16:47)
[2021-11-06 19:03] LABS: Hematocrit (blood only) 28.3 % (37-47); Hemoglobin 8.9 g/dL (12.0-16.0)
[2021-11-06 19:15] LABS: Ferritin 55.4 ng/ml (8-388)
--- NOTE | 2021-11-06 21:16 | Hospitalist Progress Note ---
Date of Service November 06, 2021 Assessment & Plan (1) Calculus of proximal left ureter: Plan: -POD #1 s/p cystoscopy, left ureteral stent placement -TMAX: 38.2 C on 11/05 - Pain control with Tylenol, Toradol, morphine. Zofran for nausea/vomiting. Any Flomax. - IVF, ceftriaxone 2 mg daily. - Urology consulted, appreciate their recommendations. - discharge held due to anemia, which likely is hemodilutional. As patient was on IVF 125 ml/hr. If repeat in PM and AM remain stable, patient will be discharged. (2) Hydronephrosis of left kidney: Plan: due to problem 1 this appears to have resolved. (3) Hypokalemia: Plan: -replaced. (4) Hypertension: Plan: - Continue lisinopril 10 mg daily (5) Diabetes: Plan: - Hold glimepiride, switch to SSI. - Accu-Cheks ACHS. - CC diet. - Most recent HbA1c in our system from 2017, however patient reports she just had outpatient labs done in September and this was 6.7, therefore will defer for now. (6) Hyperlipidemia: Plan: - Continue atorvastatin 20 mg daily. Plan: - Admit to [facility]. - SCDs for DVT PPx. - Full code. Admission and Anticipated Discharge Date Admission Date: November 04, 2021 Subjective Patient reports feeling well. He has no new complaints. Review of Systems Review of Systems: All systems reviewed & are unremarkable except as noted in HPI & below Physical Exam Physical Exam: General: awake, alert, no apparent distress Head: Normocephalic, atraumatic ENT: PERRL, EOMI, no pharyngeal exudate, mucous membranes moist Chest: Clear to auscultation, on room air, no adventitious breath sounds Cardiac: Regular rate and rhythm, no murmur, no JVD, normal peripheral pulses, good capillary refill Abdominal: NABS x 4 quadrants, soft, nontender to palpation, no rebound, guarding or tenderness Extremities: Normal inspection, no peripheral edema or erythema, calfs nontender to palpation Psych: Normal mood and affect Neuro: AAO x 3, strength intact bilaterally and rated 5/5, no motor deficits, speech is clear, no peripheral sensory deficits Skin: no rash or erythema Results & Data Results & Data ([facility]) Vital Signs (Past 12 Hours) Vital Signs Temp Pulse Resp BP Pulse Ox 11/06/21 16:06 37.2 C 82 18 127/79 96 PG Care Time/CCT Total # of Minutes Spent Total Time Spent with Patient: Total time spent is greater than 50% in coordination of care (as documented) at patient's floor/unit and/or counseling patient: Coding Level of Care Code 62032 Subseq Hosp Care Lvl 2 Diagnoses Calculus of proximal left ureter N20.1 Hydronephrosis of left kidney N13.30 Hypokalemia E87.6 Hypertension I10 Diabetes E11.9 Hyperlipidemia E78.5
[2021-11-06] MEDS: cefTRIAXone SODIUM 1,000 MG in DEXTROSE 5% 50 ML IV SCH (21:46)
[2021-11-07] MEDS: MELATONIN 3 MG TAB PO PRN (00:39)
[2021-11-07 06:54] LABS: Hematocrit (blood only) 27.6 % (37-47); Hemoglobin 8.6 g/dL (12.0-16.0); Mean Corpuscular Hgb Conc 31.2 g/dL (32-36); Mean Corpuscular Volume 77.1 fL (80-100); Mean Platelet Volume 10.1 fL (7.4-10.4); Platelet Count 448 K/uL (130-400); RDW Coefficient of Variation 16.5 % (11.5-14.5); Red Blood Count 3.58 M/uL (4.2-5.4); White Blood Count 8.63 K/uL (4.8-10.8)
[2021-11-07] MEDS: lisinopril 10 MG TAB PO SCH (07:40)
[2021-11-07] MEDS: ATORVASTATIN 20 MG TAB PO SCH (07:40)
[2021-11-07] MEDS: TAMSULOSIN HCL 0.4 MG CAP PO SCH (07:40)
[2021-11-07] MEDS: INSULIN ASPART PER UNIT SC SCH ×2 (09:19→12:41)
--- NOTE | 2021-11-07 11:42 | Discharge Summary ---
Date of Service November 07, 2021 Admission HPI Per Admitting Provider Ms. Walker is a 51-year-old female with a past medical history of hypertension, diabetes, hyperlipidemia, and kidney stone in 2018 requiring nephrostomy tube who presents today with ongoing left flank pain and new development of fever, body aches, and diarrhea. Patient was seen in our ED on 10/31 for new onset left flank pain, CT at that time revealed 7 mm left UPJ calculus with moderate left- sided hydronephrosis. This occasion, the case was discussed with urology and patient and she was discharged with Flomax and oxycodone 5 mg, with plans to follow-up with urology this week. However, although her pain has been well controlled with OTC meds and oxycodone, she has developed diffuse body aches, fevers, dysuria, and diarrhea and presents today for further evaluation. In ED, vital signs are stable and within normal limits. Labs are significant for WBC 11.56, Hgb 9.3 (11.2 on 10/31), potassium 3.0, glucose 215, T bili 1.3, alk phos 151. UA with RBCs, WBCs, trace leuk esterase. Blood and urine culture sent. CT A/P showed a 1 x 0.7 cm left ureteropelvic junction calculus with severe left hydronephrosis. Urothelial thickening and mild adjacent stranding likely related to obstruction. Patient received Tylenol, Toradol, morphine in ED for pain, as well as ceftriaxone and 1L NSS. Hospitalist service was consulted for further evaluation and admission. Principal Diagnosis 1. Obstructing L ureteral stone s/p cystoscopy with stent placement 2. Severe L hydronephrosis d/t #1 Discharge Exam GENERAL: 51 yo well-developed, well-nourished F. NAD. LUNGS: Clear to auscultation bilaterally. No W/R/R. CARDIOVASCULAR: Regular rate and rhythm. No M/G/R. No JVD. ABDOMEN: Soft, non-tender and non-distended. BS normal x 4 quad. No CVA tenderness. EXTREMITIES: No edema. Non-tender. Peripheral pulses +2/4. NEUROLOGIC: A&O x3. PSYCHIATRIC: Cooperative. Appropriate mood and affect. SKIN: Warm, dry, intact. No rashes or lesions. Discharge Data Allergies Allergy/AdvReac Type Severity Reaction Status Date / Time No Known Allergies Allergy Verified 11/04/21 20:25 Consultations 11/04/21 20:47 ED Decision to Admit Stat 11/04/21 22:04 Consult Urology Routine Procedures Performed Operation Date: 11/05/21 09:40 Actual Procedures p Cystoscopy with left ureteral Stent Placement(Left) - Farhan Reyes MD Ordered Studies Abdomen/Pelvis CT 11/04/21 19:13 CT OF THE ABDOMEN AND PELVIS WITH CONTRAST CLINICAL HISTORY: Left flank pain, obstructing ureteral stone COMPARISON STUDY: CT of the abdomen and pelvis and KUB October 31, 2021. TECHNIQUE: Following IV administration of 94 mL of Optiray, axial images of the abdomen and pelvis were obtained from the lung bases to the proximal femurs. Images were reviewed in the axial, sagittal, and coronal planes. IV contrast was administered without complication. Automated exposure control was utilized for the study. A dose lowering technique was utilized adhering to the principles of ALARA. CT DOSE: 422.19 mGy.cm FINDINGS: Lung bases are unremarkable. No pneumatosis, free air or portal venous gas is present. Liver, spleen, adrenal glands, right kidney and pancreas are unremarkable. There is no biliary or pancreatic ductal dilatation. Gallbladder is contracted. Severe left hydronephrosis has slightly progressed. There has been minimal distal migration of a 1 x 0.7 cm left ureteropelvic junction calc ulus since prior CT. Prominent adjacent lymph nodes are probably reactive. No additional urinary calculi are present. Left nephrogram is delayed. Urothelial thickening is noted. There is no evidence for a bowel obstruction. The appendix is normal. There is trace fluid within the pelvis. There are multiple suspected fibroids, including a 2.8 cm anterior fundal fibroid. There is a suspected large exophytic fibroid which extends into the right lower quadrant. These findings are suboptimally assessed by CT but are similar to earlier CT of October 16, 2017. IMPRESSION: 1. 1 x 0.7 cm left ureteropelvic junction calculus which results in severe left hydronephrosis which has slightly progressed. Delayed left nephrogram. Urothelial thickening and mild adjacent stranding is likely related to the obstruction. A superimposed infectious process is considered less likely however cannot be excluded by CT. 2. Multiple suspected fibroids, suboptimally assessed by CT. ACT 112: Negative or not required by law. Electronically signed by: Edy Javed M.D. 11/04/2021 8:18 PM Abdomen Fluoroscopy 11/05/21 00:00 FL KUB CLINICAL HISTORY: STENT PLACEMENT COMPARISON STUDY: 10/16/2017 FLUOROSCOPY TIME: 6 seconds. FLUOROSCOPIC IMAGES: 2 FINDINGS: Catheter is seen within the left ureter with interval placement of a double-J ureteral stent on the left. IMPRESSION: Status post placement of double-J ureteral stent on the left. ACT 112: Negative or not required by law. Electronically signed by: Levi Carreon M.D. 11/05/2021 3:57 PM Hospital Course (1) Calculus of proximal left ureter: -POD #2 s/p cystoscopy, left ureteral stent placement -TMAX: 38.2 C on 11/05 - Pain control with Tylenol, Toradol, morphine. Zofran for nausea/vomiting. - IVF, ceftriaxone 2 mg daily (empirically) started on admission and continued. - Urology consulted, placed stent on 11/05, tolerating well, will see as o/p to arrange for stone treatment * Urology recommending 7 days of Bactrim DS, rx sent, can start on 11/08 (2) Hydronephrosis of left kidney: due to problem 1 this appears to have resolved. (3) Anemia: - microcytic and hypochromic, chronic dating back to 2018 - hgb dropped from 9.3 on admit to 7.9 on pod#1 after procedure, therefore d/c held - hgb remains stable today (repeat last evening was 8.9 and this AM 8.6), she is asymptomatic - would defer to pcp for KAREN work up (4) Hypokalemia: - replaced/resolved (5) Diabetes: - CC diet. - Most recent HbA1c in our system from 2017, however patient reports she just had outpatient labs done in September and this was 6.7, therefore will defer for now. - can resume usual diabetic regimen upon d/c (6) Hypertension: - Continue lisinopril 10 mg daily (7) Hyperlipidemia: - Continue atorvastatin 20 mg daily. Patient is medically and hemodynamically stable for discharge home today. Rx sent for Bactrim to pharmacy for her to start tomorrow. She should continue Flomax. Not having dysuria or issues with stent so did not call in Pyridium. She can follow up with urology as scheduled on November 14. Recommend f/u with pcp within 1 week. Above plan of care has been d/w Dr. King who has also seen and evaluated this patient prior to discharge and is in agreement with aforementioned. Total Time Total Time Spent Total Time Spent (In Minutes): >30 minutes Discharge Plan Discharge Items Patient Disposition: Home - Self-Care Reason For Visit: OBSTRUCTING LEFT STONE WITH SEVERE HYDROPHROSIS Discharge Diagnosis: Left kidney stone Swelling of left kidney Activity: Resume your previous activity Non-emergency contact: Primary Care Provider and Urologist Call non-emergency contact if: you have any medication questions Follow-up/Referrals: Farhan Reyes MD [Physician] - 11/14/21 9:20 am Sangita Blanchard CRNP [Primary Care Provider] - Diet: Carb Consistent or DM2 Addtl Attending Provider Instructions: You were hospitalized due to a kidney stone that was blocking the flow of urine in your left ureter (the tube that connects your kidney to your bladder). This was causing urine to back up into your left kidney and making it swell. You were started on antibiotics in the event of that the stone was causing a urinary tract infection. Urology was consulted and you underwent placement of a stent on november 05. This is to better allow the flow of urine. You will follow up with urology on November 14 in order to determine the best approach to treat the stone in your ureter. You were found to have some pus in the urinary tract during the procedure of the stent placement. Therefore, it is recommended that you continue a course of antibiotics upon discharge. This will be Bactrim DS, 1 tablet by mouth twice per day. You can start this medication on 11/08 in the morning, please complete the full course as prescribed. Although you appear to be chronically anemic (having a lower than normal blood count), you did have a little drop in your blood count that was felt to be due to the IV fluids diluting the blood in your bloodstream. Your hemoglobin has remained stable. We would recommend that you follow up with your family doctor for this issue as you may have an iron deficiency that needs further investigated and corrected. We recommend that you contact your family doctor upon discharge to arrange for a follow up appointment within 1 week. [facility] questions following your discharge. In the event of a medical emergency, call 911. Addtl Purchasing Officer Provider Instructions: Please call the urology office at [phone] with any questions, concerns or need to reschedule appointments for any reason. We are happy to assist you. While you have a ureteral stent in place: Some discomfort is normal. Certain movements may trigger pain or a feeling that you need to urinate. You may also feel mild soreness or pressure before or during urination. These symptoms should go away a few days after the stent is removed. Your urine may be slightly pink or red. This is due to bleeding caused by mi nor irritation from the stent. This may happen on and off while you have the stent, it is not harmful and is to be expected. Medication to help minimize discomfort or bladder spasms, or to prevent i nfection may be prescribed. Take this as directed. Drink plenty of fluids to help flush out your urinary tract. When to call [facility] Urology at [phone]: Your urine contains heavy blood clots or you are unable to urinate. Fever of 101F or higher, chills, nausea, or vomiting Your pain is not relieved with medication The end of the stent comes out of your urethra Pending Studies at Discharge: No Stand-Alone Forms: My [facility], Smoking Cessation Medications and DC Order Prescriptions: New sulfamethoxazole-trimethoprim [Bactrim DS] 800-160 mg tablet 1 tab PO BID 7 Days Qty: 14 RF: 0 Continued lisinopril 10 mg tablet 10 mg PO QAM RF: 0 atorvastatin 20 mg tablet 20 mg PO QDD RF: 0 glimepiride 2 mg tablet 2 mg PO QDD RF: 0 oxycodone 5 mg tablet 5 mg PO Q4H PRN (Reason: pain) Qty: 15 RF: 0 tamsulosin [Flomax] 0.4 mg capsule 0.4 mg PO QDD RF: 0 Discharge Orders: Discharge Order (Routine); Ordered 11/07/21 Ordered By: Nayana Montoya Admission Data Admit Date/Time: 11/04/21 21:13 Attending Provider: Joe King Admit Provider: Demian Resendiz Primary Care Provider: Sangita Blanchard Other Providers: Demian Resendiz ; Drew Young Other Interventions: Discharge Summary Assessment (RN) Last Done: 11/07/21 13:25 Supervising Physician Co-Signing Physician Notes I personally examined the patient and verified all sanderson points of history and exam, discussed case, and agree with decision making with Teena Montoya PAC feeling better feels up to going home no new complaints vitals noted nad heent nc at mmm breathing unlabored no accessory muscles good effort kidney stone - s/p cysto/stenting, stable for home, otherwise as above Coding Level of Care Code D/C DAY MANAGEMENT >30 MINS Diagnoses Calculus of proximal left ureter N20.1 Hydronephrosis of left kidney N13.30 Hypokalemia E87.6 Hypertension I10 Diabetes E11.9 Hyperlipidemia E78.5 Anemia D64.9
== END 2021-11-07 15:15 | disposition home or self-care (01) | DRG 661 ==
LOC: ED 18:15 → 3N 21:13 → SUATTDRO 21:13 → 3N 21:49
DX: E11.9 Type 2 diabetes mellitus without complications; E78.5 Hyperlipidemia, unspecified; I10 Essential (primary) hypertension; N13.2 Hydronephrosis with renal and ureteral calculous obstruction; E87.6 Hypokalemia; D64.9 Anemia, unspecified; Z79.84 Long term (current) use of oral hypoglycemic drugs